=== PATIENT | female | born 1960 | race Caucasian/White ===

== ENCOUNTER → 2020-05-28 11:32 | Outpatient (BNVA) | payer OTHER, SELFPAY | PROVIDERS: Family Provider Family Medicine; PCP Family Medicine; Visit Provider Family Medicine | DX: Z20.828 Contact with and (suspected) exposure to other viral communicable diseases (principal) | CPT/HCPCS: 87635 ==

== ENCOUNTER 2020-06-08 07:46 | Outpatient (CLI) | payer OTHER, SELFPAY ==
--- NOTE | 2020-06-08 08:10 | CT_ITS ---
WS: [id number] CTA scan of the chest with IV contrast. Additional two-dimensional coronal and sagittal reconstructio n and MIP images was performed. 06/08/2020 Clinical Data: ELEVATED D-DIMER Comparison: None. DLP: 741.[address] scans at [facility] use at least one of these dose optimization techniques: automat ed exposure control; mA and/or kV adjustment per patient size (includes targeted exams where dose is matched to clinical indication); or iterative reconstruction. Findings: The central pulmonary arteries and peripheral pulmonary arteries fill normally with no evidence of in traluminal filling defects. No pulmonary embolic disease is noted. No nodules, masses or effusions are seen. The heart size is normal with no pericardial effusion. No p neumonia or pneumothorax is seen. The pulmonary arterial system and thoracic aorta demonstrate no abn ormalities or dilatations. There is no axillary or significant mediastinal adenopathy. The thyroid gl and shows normal enhancement. The trachea bifurcates into the bronchi. The bones of the thorax show m inimal osteoarthritic change of the thoracic vertebral bodies. The upper abdomen shows no abnormalities. The visualized liver, spleen, pancreas, adrenal glands and superior poles of the kidneys are not remarkable. CT/CT angio chest PE protcl [id number] Impression: 1. Negative for pulmonary embolic disease. 2. Negative for acute cardiopulmonary disease.
[2020-06-08] MEDS: iohexol 350 mg/mL 100 mL Btl IV (08:36)
== END 2020-06-08 07:47 | disposition home or self-care (01) ==
LOC: RADWPI 07:49
PROVIDERS: PCP Family Medicine; Visit Provider Family Medicine
DX: R79.89 Other specified abnormal findings of blood chemistry (principal)
CPT/HCPCS: 71275; Q9967

== ENCOUNTER → 2021-07-26 13:40 | Outpatient (BNVA) | payer OTHER, SELFPAY | PROVIDERS: PCP Family Medicine; Visit Provider Nurse Practitioner | DX: Z20.822 Contact with and (suspected) exposure to COVID-19 (principal) | CPT/HCPCS: 87635 ==

== ENCOUNTER → 2021-10-04 12:04 | Outpatient (BNVA) | payer OTHER, SELFPAY | PROVIDERS: PCP Family Medicine; Visit Provider Specialist | DX: M25.562 Pain in left knee (principal); M25.561 Pain in right knee; Z96.642 Presence of left artificial hip joint | CPT/HCPCS: 73560; 73565 ==

== ENCOUNTER 2021-10-04 15:05 | Outpatient (CLI) | payer OTHER, SELFPAY | END 2021-10-04 15:06 | disposition home or self-care (01) | LOC: SPT 15:06 | PROVIDERS: PCP Family Medicine; Visit Provider Specialist | DX: Z46.89 Encounter for fitting and adjustment of other specified devices (principal); M25.561 Pain in right knee; M17.11 Unilateral primary osteoarthritis, right knee; M25.461 Effusion, right knee | CPT/HCPCS: 80503; 87070; 87075; 87205; 89050; 97760; L1812 ==

== ENCOUNTER 2021-11-09 13:07 | Outpatient (CLI) | payer OTHER, SELFPAY ==
--- NOTE | 2021-11-09 13:19 | MR_ITS ---
WS: [id number] MRI RIGHT KNEE HISTORY: knee pain COMPARISON: None available. Anterior cruciate ligament: Intact. Posterior cruciate ligament: Intact. Medial collateral ligament: Increased fluid surrounding the MCL. Partial tear proximally. No full-thi ckness tear. Posterior lateral corner structures: Intact. Medial menisci: Intact. Normal signal, size and shape. Lateral meniscus: Intact. Normal signal, size and shape. Extensor mechanism: Distal quadriceps tendon and patellar tendons are intact. Fluid and soft tissue: Large suprapatellar effusion. Moderate amount of subcutaneous edema surroundin g the knee. No Santiago's cyst. Osseous and articular structures: Patellofemoral compartment: Mild lateral subluxation of the patella. Loss of cartilage over the lemus lar facets. Medial compartment: Mild narrowing medial compartment. Small marginal osteophytes. 6 mm osteochondral lesion medial tibial plateau. Mild thinning and loss of cartilage. There is a small amount of marrow edema in the femoral condyle and tibial plateau. Lateral compartment: Minimal narrowing. Moderate thinning and fissuring of the cartilage. No full-thi ckness defects. Small joint line osteophytes. No fracture. MR/MR knee RT wo con* [id number] IMPRESSION: 1. Large suprapatellar joint effusion. 2. Mild narrowing of the medial compartment with a small amount of marrow stephen a in the femoral condyle and tibial plateau. 3. 6 mm osteochondral lesion medial tibial plateau. 4. Grade 2 MCL sprain. 5. Very mild lateral subluxation of patella with diffuse chondromalacia.
== END 2021-11-09 13:08 | disposition home or self-care (01) ==
LOC: RAD 13:10
PROVIDERS: PCP Family Medicine; Visit Provider Specialist
DX: M17.11 Unilateral primary osteoarthritis, right knee (principal); M25.461 Effusion, right knee; M25.569 Pain in unspecified knee
CPT/HCPCS: 73721

== ENCOUNTER 2021-11-18 12:24 | Outpatient (CLI) | payer OTHER, SELFPAY ==
--- NOTE | 2021-11-18 | XR_ITS ---
WS: [id number] Chest 2 views, 11/18/2021. Clinical Data: SHORTNESS OF BREATH Comparison: PA and lateral chest, 12/08/2016. Findings: No nodules, masses or effusions are seen. The heart is normal. The pulmonary vascularity is not increased. No pneumonia or pneumothorax is seen. XR/XR chest 2V* [id number] Impression: Negative chest.
== END 2021-11-18 12:25 | disposition home or self-care (01) ==
LOC: RADOUTREAD 11-22 12:25
PROVIDERS: PCP Family Medicine; Visit Provider Family Medicine
DX: R06.02 Shortness of breath (principal)
CPT/HCPCS: 71046

== ENCOUNTER 2021-11-23 06:00 | Outpatient (RCR) | payer OTHER, SELFPAY | END 2021-12-22 23:59 | disposition home or self-care (01) | LOC: SPT 06:00 | PROVIDERS: PCP Family Medicine; Referring Provider Specialist; Visit Provider Specialist | DX: M25.561 Pain in right knee (principal); M25.562 Pain in left knee | CPT/HCPCS: 97110; 97161 ==

== ENCOUNTER 2021-12-22 05:55 | Outpatient (CLI) | payer OTHER, SELFPAY ==
--- NOTE | 2021-12-22 | USCV_ITS ---
Susanne Olivas Age: 61 Gender: F : 1960 Exam Date: 12/22/2021 06:15 Ordering Phys: Lane Krause MD Technologist: BARNEY Exam Location: [facility] [place] Indication: ABNORMAL EKG BP: 140 / 80 HR: 62 Rhythm: Sinus Technical Quality: Adequate MEASUREMENTS (Male / Female) Normal Values 2D ECHO LV Diastolic Diameter PLAX 4.6 cm 4.2 - 5.9 / 3.9 - 5.3 cm LV Systolic Diameter PLAX 2.7 cm IVS Diastolic Thickness 1.3 cm 0.6 - 1.0 / 0.6 - 0.9 cm IVS Systolic Thickness 1.8 cm LVPW Diastolic Thickness 1.7 cm 0.6 - 1.0 / 0.6 - 0.9 cm LVPW Systolic Thickness 2.1 cm LVOT Diameter 2.0 cm LV Ejection Fraction 2D Teich 71.3 % LV Ejection Fraction MOD 2C 74.9 % LV Ejection Fraction 2C AL 75.8 % LA Diameter 3.3 cm LA Width 2.3 cm LA Height 4.6 cm RA Width 2.9 cm RA Height 4.5 cm Aorta at Sinotubular Diameter 2.3 cm IVC Diameter 1.6 cm M-MODE Aortic Annulus Diameter 3.6 cm LA Ao Ratio MM 1.0 MV E Point Septal Separation 0.6 cm DOPPLER AV Peak Velocity 167.7 cm/s LVOT Peak Velocity 126.0 cm/s AV Area Cont Eq vti 2.7 cm squared AV Area Cont Eq pk 2.4 cm squared MV Peak Velocity 103.0 cm/s MV Area PHT 3.1 cm squared Mitral E to A Ratio 1.0 MV E' Velocity 51.5 cm/s Mitral E to MV E' Ratio 7.9 Mitral E to LV E' Lateral Ratio 7.5 Mitral E to LV E' Septal Ratio 8.3 TR Peak Velocity 121.3 cm/s TR Peak Gradient 5.9 mmHg TR Mean Velocity 88.3 cm/s TR Mean Gradient 3.3 mmHg TR Velocity Time Integral 31.6 cm TV Peak E Velocity 59.0 cm/s Right Atrial Pressure 3.0 mmHg Pulmonary Artery Systolic Pressu 8.9 mmHg PV Peak Velocity 99.0 cm/s RV Acceleration Time 0.1 s RV Ejection Time 0.3 s RV AcT/ET 0.3 FINDINGS Left Ventricle Normal left ventricular size, systolic function and wall thickness, with no regional wall motion abnormalities. Left ventricular ejection fraction is estimated at 70 %. Normal diastolic function. Right Ventricle Normal right ventricular size and systolic function. Right ventricular systolic pressure 8.9 mmHg. Right Atrium Normal right atrial size. Right atrial pressure estimated at 3 mmHg. Left Atrium Normal left atrial size. Mitral Valve Structurally normal mitral valve. No mitral valve stenosis. No mitral valve regurgitation. Aortic Valve Aortic valve not well visualized. No aortic valve stenosis. No aortic valve regurgitation. Tricuspid Valve Structurally normal tricuspid valve. Trace to mild tricuspid valve regurgitation. Pulmonic Valve Pulmonic valve not well visualized. No significant pulmonary valve regurgitation. Pericardium No pericardial effusion. Aorta Normal-sized aortic root. IVC Normal IVC dimension with >50% respiratory change of the inferior vena cava. CONCLUSIONS 1. Normal left ventricular size, systolic function and wall thickness, with no regional wall motion abnormalities. Left ventricular ejection fraction is estimated at 70 %. Normal diastolic function. 2. Normal right ventricular size and systolic function. 3. Trace to mild tricuspid valve regurgitation. 4. Normal pulmonary artery pressure. 5. No prior similar studies to compare. Allison Molina MD (Electronically Signed) Final Date: 22 December 2021 12:47 S
== END 2021-12-22 05:56 | disposition home or self-care (01) ==
LOC: RAD 05:56
PROVIDERS: PCP Family Medicine; Visit Provider Family Medicine
DX: R94.31 Abnormal electrocardiogram [ECG] [EKG] (principal)
CPT/HCPCS: 93306

== ENCOUNTER 2021-12-23 06:00 | Outpatient (RCR) | payer OTHER, SELFPAY | END 2022-01-22 23:59 | disposition home or self-care (01) | LOC: SPT 06:00 | PROVIDERS: PCP Family Medicine; Referring Provider Specialist; Visit Provider Specialist | DX: M25.561 Pain in right knee (principal) | CPT/HCPCS: 97110 ==

== ENCOUNTER 2022-01-10 13:21 | Observation (INO) | payer OTHER, SELFPAY ==
[2022-01-04 10:09] VITALS: BMI 42.0
[2022-01-04 10:28] LABS: Add Urine Microscopic? NO; Charge for UA Resulting for Rev
[2022-01-04 10:42] LABS: Bilirubin Urine Neg (Negative); Blood Urine Neg (Negative); Glucose Urine UA Norm (Normal); Ketones Urine Negative (Negative); Leukocyte Esterase Urine Negative (Negative); Nitrate Urine Negative (Negative); Protein Urine Neg (Negative); Urine Appearance Clear (CLEAR); Urine Color Yellow (Yellow); Urobilinogen Urine Norm (Negative); pH Urine 5 (5-7)
[2022-01-04 10:54] LABS: Basophils % 0.5 %; Eosinophils # 0.1 10^3/uL (0.0-0.8); Eosinophils % 2.2 %; Lymphocytes # 1.3 10^3/uL (0.8-4.8); Lymphocytes % 21.8 %; Mean Corpuscular Hemoglobin 33.8 pg (28.0-34.0); Mean Corpuscular Volume 99.4 fl (81-99); Mean Platelet Volume 11.1 fL (7.4-10.4); Monocytes # 0.5 10^3/uL (0.2-0.9); Monocytes % 8.2 %; Neutrophils # 3.94 10^3/uL (1.8-7.7); Nucleated Red Blood Cells % 0 %; Platelet Count 189 10^3/cmm (130-400); Red Blood Count 5.03 10^6/uL (4.1-5.3); Red Cell Distribution Width 12.1 % (12.1-15.1); White Blood Count 5.9 10^3/uL (4.0-10.0)
[2022-01-04 10:56] LABS: INR 0.98 (0.8-1.2)
[2022-01-04 11:13] LABS: Alanine Aminotransferase 35 U/L (0-33); Albumin Level 4.3 g/dL (3.5-5.2); Alkaline Phosphatase 108 IU/L (35-105); Anion Gap 17.1 (5-19); Aspartate Amino Transferase 20 U/L (0-32); Blood Urea Nitrogen 16 mg/dL (6-20); Calcium 10.1 mg/dL (8.5-10.5); Carbon Dioxide 29 mmol/L (22-29); Chloride 98 mmol/L (98-107); Globulin 3.6 g/dL (1.3-4.6); Glomerular Filtration Rate 85.6 mL/min (90-130); Glucose 117 mg/dL (65-115); Osmolality Calculated 292 mOsm/kg (285-295); Potassium 4.1 mmol/L (3.5-5.1); Sodium 140 mmol/L (136-145); Total Bilirubin 0.3 mg/dL (0.15-1.2); Total Protein 7.9 g/dL (6.6-8.7)
--- NOTE | 2022-01-04 14:46 | P.ANESASSM_ITS ---
Pre-Anesthetic Assessment Height/Weight: Height 1.63 m Weight 111.13 kg Preop Diagnosis: end stage OA Operation Date: 01/10/22 10:45 Proposed Procedures p Right Total Knee Arthoplasty Bilateral 82053,M17.10(Right) - Melyssa Avery MD Familial anesthetic complications: none Was Beta Moody taken within 24 hours: Yes Was Clonidine taken within 24 hours: N/A Social Tobacco and No alcohol Exam alert, oriented x 3, clear to auscultation bilaterally and regular rate & rhythm Airway Submandibular: within normal limits Cervical ROM: within normal limits Mallampati: Class III Dentition: full Pulmonary Chronic Obstructive Pulmonary Disease and Sleep Apnea CV/HEM Deep Vein Thrombosis (After traumatic injury now has IVC filter in place ) and Hypertension Polycythemia None reported Hepatic None reported GI None reported Metabolic Morbid Obesity [facility] Osteoarthritis/DJD Neuropsych None reported Anesthetic Plan ASA status: 3 Anesthesia: Anesthesia Evaluation and Regional (specify below) (Spinal with adductor canal block ) Other: We discussed risk and benefits of general vs spinal anesthesia including DVT risk, infection, paralysis/catastrophic nerve injury, back bruising/pain, PDPH, conversion to general in case of spinal, PONV, sore throat (sometimes severe), corneal abrasion, positioning and peripheral nerve injuries, life threatening allergic reaction, post operative ICU admission requiring prolonged intubation, stroke, heart attack, , post operative delirium and/or post operative cognitive decline, and rare incidences of recall (under general anesthesia). We discussed risk and benefits of nerve block for post op pain control including management of pain and titration of pain medications as signs/symptoms of nerve block wearing off begin to appear and/or prior bed. We discussed risk of failed nerve block, vascular injury or other vital structure injury, abscess/infection, LAST, and nerve injury. Patient elects spinal with nerve block Risk of > 500 ml blood loss (7ml/kg in children): No Medications/Allergies Home Medications Medication Instructions Recorded Confirmed Last Taken Type escitalopram oxalate 20 mg tablet 20 mg PO DAILY 09/04/19 01/04/22 Unknown History (Lexapro) furosemide 20 mg tablet (Lasix) 20 mg PO BID 09/04/19 01/04/22 Unknown History potassium chloride 10 mEq 10 meq PO DAILY 09/04/19 01/04/22 Unknown History capsule,extended release metoprolol succinate 100 mg 100 mg PO DAILY 12/01/20 01/04/22 Unknown History tablet,extended release 24 hr HINGED KNEE BRACE #1 ea NS 10/04/21 01/04/22 Unknown Rx celecoxib 200 mg capsule (Celebrex) 200 mg PO DAILY #30 cap 10/21/21 01/04/22 Unknown Rx Front wheel walker #1 ea 10/27/21 01/04/22 Unknown Rx hydrochlorothiazide 12.5 mg tablet 12.5 mg PO DAILY 01/02/22 01/04/22 Unknown History montelukast 10 mg tablet 10 mg PO DAILY 01/04/22 01/04/22 Unknown History Allergies Allergy/AdvReac Type Severity Reaction Status Date / Time lisinopril Allergy ADR-Cough Verified 01/02/22 15:00 losartan Allergy ALGY-Rash Verified 01/02/22 15:00 [facility] Anesthesia Medical History Cellulitis H/O deep venous thrombosis Hypertension Shortness of breath Sleep apnea Surgical History H/O total knee replacement Social History Smoking and tobacco status: current every day smoker (1 pack ) Data Anesthesia : 01/04/22 10:26 01/04/22 10:26 Short CBC 01/04/22 Range/Units 10:26 WBC 5.9 (4.0-10.0) 10^3/uL Hgb 17.0 H (11.5-15.3) g/dL Hct 50.0 H (37.0-47.0) % MCV 99.4 H (81-99) fl Plt Count 189 (130-400) 10^3/cmm Neut % (Auto) 67.0 % Neut # (Auto) 3.94 (1.8-7.7) 10^3/uL BMP 01/04/22 10:26 Sodium 140 Potassium 4.1 Chloride 98 Carbon Dioxide 29 BUN 16 Creatinine 0.7 Glucose 117 H Calcium 10.1 Liver Function 01/04/22 Range/Units 10:26 Total Bilirubin 0.3 (0.15-1.2) mg/dL AST 20 (0-32) U/L ALT 35 H (0-33) U/L Alkaline Phosphatase 108 H (35-105) IU/L Albumin 4.3 (3.5-5.2) g/dL Urine 01/04/22 Range/Units 10:01 Urine Color Yellow (Yellow) Urine Appearance Clear (CLEAR) Urine pH 5 (5-7) Ur Specific [place] 1.020 (1.005-1.030) Urine Protein Neg (Negative) Urine Glucose (UA) Norm (Normal) Urine Ketones Negative (Negative) Urine Nitrate Negative (Negative) Urine Bilirubin Neg (Negative) Ur Leukocyte Esterase Negative (Negative) Coags 01/04/22 10:26 PT 13.30 INR 0.98 Cardiac Studies: Echocardiogram 12/22/21
[2022-01-10] VITALS (25 sets, daily range): BP systolic 90–186; BP diastolic 43–103; PULSE 50–78; RESP 14–20; TEMP 36.1–36.9; O2SAT 92–98
--- NOTE | 2022-01-10 06:59 | P.HPUD_ITS ---
Surgery/Procedure H&P Update DATE OF PROCEDURE: January 10, 2022 DATE H&P PERFORMED: 01/02/22 H&P UPDATE INFORMATION: I have reviewed H&P completed within last 30 days, I have examined patient prior to procedure, No changes to prior documentation and [place] is [place] [facility] date indicated PREOP DIAGNOSIS: DJD Right knee PLANNED PROCEDURE: Operation Date: 01/10/22 08:00 Proposed Procedures p Right Total Knee Arthoplasty 86630,M17.10(Right) - Melyssa Avery MD Related Problem List Diagnoses (1) Primary osteoarthritis of right knee: (2) Morbid obesity with BMI of 40.0-44.9, adult:
[2022-01-10] MEDS: sodium chloride 0.9% 1,000 ML 30 ML IV (07:11)
[2022-01-10] MEDS: acetaminophen 1,000 MG/100 ML PIGGYBACK 400 MG IV ×3 (07:11→22:50)
[2022-01-10] MEDS: CELEcoxib 200 mg Capsule 400 MG PO (07:12)
[2022-01-10] MEDS: vancomycin 1,000 MG in sodium chloride 0.9% 250 ML 250 MG IV (07:54)
--- NOTE | 2022-01-10 07:58 | P.ANESUD_ITS ---
Pre-Anesthetic Update Pre-Anesthetic Assessment: Date of Surgery/Procedure: 01/10/22 Preop Jennifer gnosis: DJD Right knee Proposed Procedure: Operation Date: 01/10/22 08:00 Proposed Procedures p Right Total Knee Arthoplasty 67048,M17.10(Right) - Melyssa Avery MD Any changes to Pre-Anesthetic Assessment?: No Last Intake: Intake Last Liquid Date 01/09/22 Last Liquid Time 20:00 Last Solid Date 01/09/22 Last Solid Time 20:00 Vitals: Temperature 98.2 F 01/10/22 06:33 Temperature Source Temporal Artery S can 01/10/22 06:33 Pulse Rate 78 01/10/22 06:33 Pulse Rhythm 01/10/22 06:33 Pulse Strength 3+ Normal 01/10/22 06:33 Respiratory Rate 18 01/10/22 06:33 Blood Pressure 172/96 01/10/22 06:33 Blood Pressure Millie n 121 01/10/22 06:33 Pulse Oximetry 96 01/10/22 06:33 Oxygen Delivery Me thod 01/10/22 06:33 Exam: Pre-Anes Outpt Exam: alert, oriented x 3, clear to auscultation bilaterally and regular rate & rhythm Cardiac Studies: Echocardiogram 12/22/21
[2022-01-10] MEDS: ceFAZolin 2,000 MG in sodium chloride 0.9% (plus) 50 ML 100 MG IV ×2 (08:52→17:36)
--- NOTE | 2022-01-10 09:44 | ANES.PROC ---
Anesthesia Procedures Procedure/Date: 01/10/22 Nerve Block ^: Nerve Block 1: Main Anesthesia: spinal anesthesia block Time Out Performed: Yes Consent: requested by attending/covering physician, from patient, risks and benefits reviewed and patient agrees to proceed Nerve block location: adductor canal (right) Anesthesia monitors applied: pulse oximetry, EKG, BP cuff and oxygen Nerve block position: supine Anesthetic Used: ropivicaine 0.5% Amount of anesthesia used (mL): 20 Ultrasound used to: recognize landmarks Nerve Stimulator Used?: No Interscalene/Femoral BLK: 4 stimuplex 21 g needle used for position and inplane approach Injection: neg aspiration of heme Patient Tolerated Procedure: well Complications: none
--- NOTE | 2022-01-10 09:46 | SUR.OPER ---
Called and notified him of surgical start.
[2022-01-10] MEDS: vancomycin 1,000 MG SDV 1000 MG XX (09:54)
[2022-01-10] MEDS: ceFAZolin 1,000 mg SDV 1000 MG IRRIGATION (09:55)
[2022-01-10] MEDS: sodium chloride 0.9% 250 mL Bag 50 ML XX (09:56)
[2022-01-10] MEDS: tranexamic acid 1,000 mg/10mL SDV 1000 MG IV (10:36)
--- NOTE | 2022-01-10 10:37 | SUR.OPER ---
Called and updated with surgical progress.
--- NOTE | 2022-01-10 11:49 | XRR_ITS ---
PROCEDURE INFORMATION: Exam: XR Right Knee Exam date and time: 01/10/2022 11:53 AM Age: 61 years old Clinical indication: Device placement; Joint replacement hardware; Prior surgery; Surgery date: Post-operative (0-2 days); Surgery type: Status post total knee arthroplasty TECHNIQUE: Imaging protocol: Radiologic exam of the Right knee. Views: 1 or 2 views. COMPARISON: MR knee RT wo con* [id number] 11/09/2021 2:25 PM FINDINGS: Bones/joints: Arthroplasty changes seen in place with postsurgical soft tissue changes. Soft tissues: See Bones/joints finding. XR/XR knee RT 1-2V [id number] IMPRESSION: Arthroplasty changes seen in place with postsurgical soft tissue changes.
--- NOTE | 2022-01-10 11:57 | P.OP_ITS ---
Operative Report Date of procedure: January 10, 2022 Pre-op diagnosis: Primary osteoarthritis right knee Post-op diagnosis: Primary osteoarthritis right knee Procedure done: Right total knee arthroplasty Implants: The [place] total knee system with a size 3 triathlon beaded posterior stabilized femur right, a triathlon titanium tibial component size 2 beaded, a triathlon X3 posterior stabilized tibial bearing insert size 2 X 9 mm and a beaded triathlon titanium asymmetric patella size 29 x 9 mm Pathology: none sent Surgeon: Melyssa Avery Supervisor Waterworks: [facility] operating room technicians Anesthesia: MAC (With spinal and supplemental adductor block, ASA 3) Estimated blood loss (mL): 50 Tourniquet time (min): 71 (300) IV fluids (mL): 700 Urine output (mL): 100 Complications: None Findings: Significant degenerative osteoarthritis consistent with x-rays. Condition: stable Disposition: PACU (Then to floor for postoperative rehabilitation and pain management) Brief History: Susanne Olivas is an established 61 year old female patient here today for evaluation of her right knee. Around the beginning of September of this year, the patient states she was walking in her house when she heard a pop and felt pain in her right knee.? She was seen in my office at that time and treated.? The pain continued, but with time, it is slowly improved.? She has had physical therapy with improvement as well.? Patient has had cortisone injections previously. She had an MRI that was completed on November 09. ?She also understands that she is likely looking at a total knee replacement. Patient has had 6 weeks of protected weight bearing, strengthening, and bracing that has not allowed her to return to her pre injury state.? She has also been unable to return to work.? Patient rates pain 2/10 today. Patient presents to clinic without use of assistive devices. Patient just had her last session with physical therapy last week and was discharged. Patient is weight bearing as tolerated and her walking has improved. Procedure: The patient was brought to the operating theater, and after undergoing adequate spinal anesthesia with MAC and supplemented with adductor canal block, ASA 3, the right lower extremity was prepped with Dura-Prep and draped in usual fashion following placement of a tourniquet high on the leg. The leg was then draped free. Following prepping and draping, the leg was exsanguinated, and the tourniquet was elevated to 250 mmHg for a total tourniquet time of 71 minutes.? Prior to elevation of the tourniquet, but following exposure of the site of surgery, a surgical pause was performed. At the time of the surgical pause, we confirmed the site and side of surgery. Additionally, we confirmed the appropriate and timely administration of preoperative antibiotics, Ancef 2 g, vancomycin 1 g, and Transexemic acid 1 g.? The availability of equipment was confirmed, and the patient's identity was verbalized as well.? An additional 1 g of transexemic acid was administered at the end of the case. Following the surgical pause, an incision was made centering over the patella continuing proximally and distally as necessary to allow access to the knee joint. Dissection continued through skin and soft tissues using a scalpel. Hemostasis was obtained using electrocautery. The skin incision was followed by a median parapatellar arthrotomy. The leg was extended and the patella was everted. Following this, the leg was returned to flexed position.? The distal femur was exposed, and a drill hole was made in this for placement of the distal femoral jig. The distal femoral jig was set at 5? of valgus. The distal femoral cutting block was then placed in appropriate position, and an bibiana wing was used to confirm an appropriate amount of distal femur would be resected.? The distal femoral resection was accomplished with 8 mm of bone being resected distally.? After the distal femoral resection was accomplished, the femur was measured, and it measured a size 3.? Medial lateral dimension also measured a size 3.? A size 3 femoral cutting block was placed in position, and we were then able to accomplish the anterior, posterior and chamfer cuts. This jig was then removed, and the notch guide was placed in position. With the notch guide in appropriate position, the notch was excised including resection of the anterior and posterior cruciate ligaments. This notch was to allow for the posterior stabilized femoral component. At this point, the femur was prepared and attention was directed to the proximal tibia.? The posterior knee retractor was placed along with medial and lateral r etractors. Further resection of the menisci was accomplished as we had better visualization. A complete meniscectomy was performed both medially and laterally with care being taken to protect the popliteus. Retractors were then placed so that the proximal tibia was well visualized. A drill hole was then made in the tibia for placement of the intramedullary guide. This guide was placed so that approximately 2 mm of bone would be resected from the deficient medial tibial plateau. The intramedullary guide was utilized supplemented with an extramedullary guide to assure appropriate alignment for the proximal tibial resection. The proximal tibial jig was then evaluated, pinned in position, and the proximal tibial resection was accomplished without difficulty. The jig was removed, and the proximal tibia was measured. It measured a size 2. We then attempted a trial reduction with a size 2 by 9 mm.? The femoral component was placed in position for the trial reduction, and the knee was placed through range of motion.? With this construct, there was appropriate patellar tracking. Extension was noted to be full as well.? With this we had excellent varus valgus alignment.? The knee was stable to varus valgus stress.? Therefore, these were the chosen components.? There was full extension and flexion without lift off and the rotation of the tibia was marked.? Alignment was checked from the hip to the ankle, and this was noted to be appropriate as well. Attention was then directed to the patella. The patella was measured with a caliper.? As the patella was quite thin, we resected the minimum patella to be able to place a patellar prosthesis..? Measurements of the patella then indicated that a size asymmetric 29 mm x 9 mm was the appropriate patellar size. We then placed the jig to drill for the 3 pegs of the press-fit patella, and these drill holes were made without incident. A trial patella was then placed, and the knee was placed through range of motion. The patella was noted to track nicely without evidence of subluxation.? The femur was prepared for a press-fit femur by drilling 2 holes for the femoral pegs.? All trial components were subsequently removed. The tibial tray was then pinned into position, and we broached the tibia for the stem of the tibial component.? Subsequently, 4 drill holes were made for placement of the press-fit tibia.? This was accomplished without difficulty. Care was taken to assure appropriate rotation of the tibia as well as appropriate position on the proximal tibia. The tibial tray was completely seated on the proximal tibia. Following broaching, the tibial guide was removed, and all surfaces were copiously irrigated. The surfaces were then dried and a bone plug was placed into the distal femur.? Exparel was also subsequently injected. The Tritanium tibia was impacted into position.? The beaded femur was then impacted into position in a cementless fashion. The tibial insert was placed. The patella was pressed into position with a patellar clamp.? The knee was then copiously irrigated with betadine and saline and suctioned dry. Attention was then directed to closure. Closure was accomplished with 0 Vicryl in the fascial tissues.? Following this, a 2-0 Monocryl was used in the subcutaneous tissues, and the skin was closed with skin nila.? Care was taken to assure an excellent subcutaneous as well as skin closure.? A sterile dressing was then placed consisting of Dermabond Prineo, Telfa, OpSite, sterile soft roll including over the foot, and an [place] wrap. The patient was returned the Recovery Room in a satisfactory condition. X-rays were obtained and reviewed there.? The patient will be discharged to the floor for postoperative rehabilitation and pain management. Related Problem List Diagnoses (1) Primary osteoarthritis of right knee: (2) Morbid obesity with BMI of 40.0-44.9, adult:
[2022-01-10] MEDS: hyDRALAzine 20 mg/mL INJ 1 mL 10 MG IVP (12:01)
--- NOTE | 2022-01-10 13:01 | SUR.EXTENDED ---
patient is awake and alert, able to wiggle toes. patient eating lunch. family present in room.
[2022-01-10] MEDS: oxyCODONE 5 mg IR Tab/Cap PO ×2 (13:56→17:03)
--- NOTE | 2022-01-10 14:24 | SUR.EXTENDED ---
patient transported to [facility] room 254-2. report called to daniel MAN. patient awake and alert x4, dressing in place on right knee. patient on room air with sat of 98%. patient able to move legs, wiggle toes, has sensation in both feet. burgos in place draining urine. rodent exterminator in room on arrival. patients present on transport to room 254-2.
[2022-01-10] MEDS: metoclopramide 5 mg/mL SDV 2 mL 10 MG IV (15:11)
--- NOTE | 2022-01-10 16:19 | ANE.PACU2 ---
Inpatient post-anesthesia follow up: Airway intact: Yes Vital signs: Temperature 96.9 F Pulse Rate 71 Respiratory Rate 16 Blood Pressure 90/60 Pulse Oximetry 95 Oxygen Delivery Me thod [Rate & Room Air Delivery Changed T o] Oxygen Delivery Me thod Room Air Oxygen Flow Rate Fraction of Inspir ed Oxygen Hydration adequate: Yes Nausea and vomiting: No Pain level: 2 Mental status: Baseline
[2022-01-10] MEDS: sennosides-docusate Tablet 2 TAB PO (17:36)
[2022-01-10] MEDS: calcium carbonate 500 mg Chew Tablet 1000 MG PO (17:36)
[2022-01-10] MEDS: iron polysaccharide complex 150 mg Capsule PO (17:36)
[2022-01-10] MEDS: chlorhexidine gluconate 0.12% Btl 473 mL 30 ML MUCOUS MEM ×2 (17:37→20:52)
[2022-01-10] MEDS: mupirocin oint 22 gm 1 APPLIC NASAL (18:17)
[2022-01-10] MEDS: oxyCODONE 5 mg IR Tab/Cap 10 MG PO ×2 (18:18→21:20)
--- NOTE | 2022-01-10 21:04 | PC.NURSE ---
Patient asked nurse can you call Dr. Avery and see if she can give me something to help me sleep? Dr. Avery notified. See order/mar.
[2022-01-10] MEDS: gabapentin 300 mg Capsule PO (21:16)
[2022-01-11] VITALS (10 sets, daily range): BP systolic 129–156; BP diastolic 69–84; PULSE 66–74; RESP 12–18; TEMP 36.7–36.9; O2SAT 93–97
[2022-01-11] MEDS: ceFAZolin 2,000 MG in sodium chloride 0.9% (plus) 50 ML 100 MG IV ×2 (01:02→08:35)
[2022-01-11] MEDS: oxyCODONE 5 mg IR Tab/Cap 10 MG PO ×4 (01:02→13:33)
[2022-01-11 02:35] LABS: Basophils % 0.3 %; Eosinophils # 0.1 10^3/uL (0.0-0.8); Hematocrit 42.8 % (37.0-47.0); Hemoglobin 14.5 g/dL (11.5-15.3); Lymphocytes # 1.4 10^3/uL (0.8-4.8); Lymphocytes % 15.5 %; Mean Corpuscular HGB Conc 33.9 g/dL (30.0-36.0); Mean Corpuscular Hemoglobin 33.8 pg (28.0-34.0); Mean Corpuscular Volume 99.8 fl (81-99); Mean Platelet Volume 11.3 fL (7.4-10.4); Monocytes # 0.7 10^3/uL (0.2-0.9); Monocytes % 7.6 %; Neutrophils # 6.61 10^3/uL (1.8-7.7); Neutrophils % 75.3 %; Nucleated Red Blood Cells % 0 %; Platelet Count 173 10^3/cmm (130-400); Red Blood Count 4.29 10^6/uL (4.1-5.3); Red Cell Distribution Width 12.2 % (12.1-15.1); White Blood Count 8.8 10^3/uL (4.0-10.0)
[2022-01-11 02:53] LABS: Anion Gap 10.9 (5-19); Blood Urea Nitrogen 16 mg/dL (6-20); Calcium 9.3 mg/dL (8.5-10.5); Carbon Dioxide 28 mmol/L (22-29); Chloride 99 mmol/L (98-107); Glomerular Filtration Rate 102.3 mL/min (90-130); Glucose 131 mg/dL (65-115); Osmolality Calculated 281 mOsm/kg (285-295); Potassium 3.9 mmol/L (3.5-5.1); Sodium 134 mmol/L (136-145)
[2022-01-11] MEDS: acetaminophen 1,000 MG/100 ML PIGGYBACK 400 MG IV (05:06)
[2022-01-11] MEDS: hydroCHLOROthiazide 25 mg Tablet 12.5 MG PO (08:25)
[2022-01-11] MEDS: calcium carbonate 500 mg Chew Tablet 1000 MG PO (08:25)
[2022-01-11] MEDS: montelukast sodium 10 mg Tablet PO (08:25)
[2022-01-11] MEDS: cholecalciferol (vitamin D3) 1,000 unit Tablet 1000 UNIT PO (08:25)
[2022-01-11] MEDS: aspirin 325 mg EC Tablet PO (08:25)
[2022-01-11] MEDS: CELEcoxib 200 mg Capsule PO (08:26)
[2022-01-11] MEDS: FUROsemide 20 mg Tablet PO (08:26)
[2022-01-11] MEDS: escitalopram 10 mg Tablet 20 MG PO (08:26)
[2022-01-11] MEDS: multivitamin therapeutic Tablet 1 TAB PO (08:26)
[2022-01-11] MEDS: potassium chloride ER 10 mEq Tablet PO (08:26)
[2022-01-11] MEDS: sennosides-docusate Tablet 2 TAB PO (08:26)
[2022-01-11] MEDS: metoprolol succinate ER (24 HR) 100 mg Tablet PO (08:26)
[2022-01-11] MEDS: iron polysaccharide complex 150 mg Capsule PO (08:36)
[2022-01-11] MEDS: vancomycin 1,000 MG in sodium chloride 0.9% 250 ML 250 MG IV (09:21)
--- NOTE | 2022-01-11 09:50 | PC.NURSE ---
This nurse assumed care of patient this AM, patient is resting in bed, CPM at bedside, this nurse will apply to patient after PT works with her. PT is going to sit patient up in chair for breakfast. Patient is AAOx4, with mild c/o of pain and states that pain medication per MAR controls her pain. No needs at this time. After performing morning assessment patient has elevated BP and medication will be given for that. Remaining VSS, room found to be clean and clutter free with call light in reach. Will continue to monitor.
[2022-01-11] MEDS: acetaminophen 500 mg Tablet 1000 MG PO (12:33)
--- NOTE | 2022-01-11 13:35 | PM.DCS ---
Discharge Providers Date of Admission: 01/10/22 13:21 Date of Discharge: January 11, 2022 Attending Provider at Admission: Melyssa Avery MD Attending Provider at Discharge: Melyssa Avery MD Primary Care Provider: Lane Krause MD Diagnoses at Discharge Discharge Diagnosis (1) Status post total right knee replacement not using cement: Status: Acute Permanent problem details: Date of procedure: January 10, 2022 Diagnosis: Primary osteoarthritis right knee Procedure done: Right total knee arthroplasty Implants: The Daisy total knee system with a size 3 triathlon beaded posterior stabilized femur right, a triathlon titanium tibial component size 2 beaded, a triathlon X3 posterior stabilized tibial bearing insert size 2 X 9 mm and a beaded triathlon titanium asymmetric patella size 29 x 9 mm (2) Primary osteoarthritis of right knee: Status: Acute (3) Morbid obesity with BMI of 40.0-44.9, adult: Status: Acute Reason for Visit Reason for Visit: Brief History: Susanne Olivas is an established 61 year old female patient here today for evaluation of her right knee. Around the beginning of September of this year, the patient states she was walking in her house when she heard a pop and felt pain in her right knee.? She was seen in my office at that time and treated.? The pain continued, but with time, it is slowly improved.? She has had physical therapy with improvement as well.? Patient has had cortisone injections previously. She had an MRI that was completed on November 09. ?She also understood that she was likely looking at a total knee replacement. Patient has had 6 weeks of protected weight bearing, strengthening, and bracing that has not allowed her to return to her pre injury state.? She has also been unable to return to work.? Patient rates pain 2/10 today. Patient presents to clinic without use of assistive devices. When the patient was seen preoperatively in the office, she was still having significant limitations in activities of daily living that she felt she would not be able to return to work without pursuing total knee arthroplasty. Hospital Course Hospital Course This 61-year-old woman presented to my office most recently December 29, 2021. At that time, she had had the above history, and she felt that she would not be able to return to work without total knee arthroplasty. She was interested in pursuing this patient as possible. The knee replacement and associated risks and complications were discussed in detail with the patient. Questions were answered and consents were signed. The patient was taken to the operating room yesterday for same-day surgery in the form of right total knee arthroplasty. This was well-tolerated. She was admitted to the hospital overnight and had physical therapy today. The patient did well with physical therapy and is now scheduled for discharged home. Additionally, she has an appointment, medical discussion, we elected to have her proceed with outpatient physical therapy. She is in agreement with this plan will return to see me as scheduled. Physical Exam Const: COMMON NORMALS: no acute distress, patient oriented x3 and alert GENERAL APPEARANCE: cooperative and comfortable ORIENTATION/CONSCIOUSNESS: Yes awake HENMT: COMMON NORMALS: normocephalic and atraumatic HEAD & SCALP: normocephalic and atraumatic Eye: GENERAL EYE: appearance normal, both eyes and all related structures Chest: COMMONS NORMALS: normal inspection of the chest Resp: COMMON NORMALS: normal respiratory effort EFFORT & INSPECTION: Yes able to speak in complete sentences and Yes symmetric chest movement Extremity: RIGHT LOWER EXTREMITY: Yes knee joint (Dressing is dry and intact) Right knee: Yes inspection (Minimal to no swelling or ecchymosis.), Yes palpation (Minimal tenderness.), Yes ROM (Lacks about 5 degrees of active extension.) and Yes neurovascular exam (Intact distally with no evidence of DVT) Neuro: COMMON NORMALS: patient oriented x3 SENSORIUM/ORIENTATION: Yes alert Psych: COMMON NORMALS: mental status grossly normal APPEARANCE: Yes grossly normal ATTITUDE: Yes calm and Yes engaged ATTENTION/CONCENTRATION: Yes attention grossly intact Skin: COMMON NORMALS: no rashes or lesions noted GENERAL SKIN EXAM: no rashes or lesions noted Urinary Catheter Management: Jackson: Cath Placed During This Visit: yes, but has since been removed by the nurse Reason for Continuing Indwelling Catheter: Decision to DC Catheter Urinary Catheter Date of Insertion: 01/10/22 Urinary Catheter Time of Insertion: 09:00 Date Urinary Catheter Removed: 01/11/22 Time Urinary Catheter Discontinued: 05:15 Discharge Data Studies Completed and Pending Completed Studies During Hospitalization Category Date Time Status XR knee RT 1-2V 72102 Urgent Exams 01/10/22 11:49 Completed Radiology Impressions Knee X-Ray 01/10/22 11:49 IMPRESSION: Arthroplasty changes seen in place with postsurgical soft tissue changes. Laboratory Results WBC 8.8 10^3/uL (4.0-10.0) 01/11/22 02:02 RBC 4.29 10^6/uL (4.1-5.3) 01/11/22 02:02 Hgb 14.5 g/dL (11.5-15.3) 01/11/22 02:02 Hct 42.8 % (37.0-47.0) 01/11/22 02:02 MCV 99.8 fl (81-99) H 01/11/22 02:02 MCH 33.8 pg (28.0-34.0) 01/11/22 02:02 MCHC 33.9 g/dL (30.0-36.0) 01/11/22 02:02 RDW 12.2 % (12.1-15.1) 01/11/22 02:02 Plt Count 173 10^3/cmm (130-400) 01/11/22 02:02 MPV 11.3 fL (7.4-10.4) H 01/11/22 02:02 Neut % (Auto) 75.3 % 01/11/22 02:02 Lymph % (Auto) 15.5 % 01/11/22 02:02 [place] % (Auto) 7.6 % 01/11/22 02:02 Eos % (Auto) 1.0 % 01/11/22 02:02 Baso % (Auto) 0.3 % 01/11/22 02:02 Neut # (Auto) 6.61 10^3/uL (1.8-7.7) 01/11/22 02:02 Lymph # (Auto) 1.4 10^3/uL (0.8-4.8) 01/11/22 02:02 [place] # (Auto) 0.7 10^3/uL (0.2-0.9) 01/11/22 02:02 Eos # (Auto) 0.1 10^3/uL (0.0-0.8) 01/11/22 02:02 Baso # (Auto) 0.0 10^3/uL (0.0-0.1) 01/11/22 02:02 Nucleated RBC % (auto) 0 % 01/11/22 02:02 Nucleated RBCs # 0.0 /100WBC 01/11/22 02:02 PT 13.30 SECONDS (12.1-14.9) 01/04/22 10:26 INR 0.98 (0.8-1.2) 01/04/22 10:26 Sodium 134 mmol/L (136-145) L 01/11/22 02:02 Potassium 3.9 mmol/L (3.5-5.1) 01/11/22 02:02 Chloride 99 mmol/L (98-107) 01/11/22 02:02 Carbon Dioxide 28 mmol/L (22-29) 01/11/22 02:02 Anion Gap 10.9 (5-19) 01/11/22 02:02 BUN 16 mg/dL (6-20) 01/11/22 02:02 Creatinine 0.6 mg/dL (0.5-0.9) 01/11/22 02:02 GFR Calculation 102.3 mL/min (90-130) 01/11/22 02:02 Glucose 131 mg/dL (65-115) H 01/11/22 02:02 Calculated Osmolality 281 mOsm/kg (285-295) L 01/11/22 02:02 Calcium 9.3 mg/dL (8.5-10.5) 01/11/22 02:02 Total Bilirubin 0.3 mg/dL (0.15-1.2) 01/04/22 10:26 AST 20 U/L (0-32) 01/04/22 10:26 ALT 35 U/L (0-33) H 01/04/22 10:26 Alkaline Phosphatase 108 IU/L (35-105) H 01/04/22 10:26 Total Protein 7.9 g/dL (6.6-8.7) 01/04/22 10:26 Albumin 4.3 g/dL (3.5-5.2) 01/04/22 10:26 Globulin 3.6 g/dL (1.3-4.6) 01/04/22 10:26 Urine Color Yellow (Yellow) 01/04/22 10:01 Urine Appearance Clear (CLEAR) 01/04/22 10:01 Urine pH 5 (5-7) 01/04/22 10:01 Ur Specific [place] 1.020 (1.005-1.030) 01/04/22 10:01 Urine Protein Neg (Negative) 01/04/22 10:01 Urine Glucose (UA) Norm (Normal) 01/04/22 10:01 Urine Ketones Negative (Negative) 01/04/22 10:01 Urine Blood Neg (Negative) 01/04/22 10:01 Urine Nitrate Negative (Negative) 01/04/22 10:01 Urine Bilirubin Neg (Negative) 01/04/22 10:01 Urine Urobilinogen Norm mg/dL (Negative) 01/04/22 10:01 Ur Leukocyte Esterase Negative (Negative) 01/04/22 10:01 Vitals Last Vital Signs Temp 98.1 F 01/11/22 11:52 Pulse 67 01/11/22 11:52 Resp 18 01/11/22 13:33 BP 150/69 01/11/22 11:52 Pulse Ox 95 01/11/22 11:52 Discharge Plan Discharge Patient Disposition: Home Condition: Stable Prescriptions: New acetaminophen 500 mg Tablet 1,000 mg PO Q8H 15 Days Qty: 90 0RF aspirin 325 mg Tablet,Delayed Release (Dr/Ec) 325 mg PO DAILY 30 Days 0RF oxycodone 5 mg tablet 10 mg PO Q4H PRN (Reason: pain) 7 Days Qty: 60 0RF Continued furosemide [Lasix] 20 mg tablet 20 mg PO BID 0RF potassium chloride 10 mEq capsule, extended release 10 meq PO DAILY 0RF escitalopram oxalate [Lexapro] 20 mg tablet 20 mg PO DAILY 0RF metoprolol succinate 100 mg tablet extended release 24 hr 100 mg PO DAILY 0RF hydrochlorothiazide 12.5 mg tablet 12.5 mg PO DAILY 0RF (DME) HINGED KNEE BRACE See Rx Instructions .Route .MEDSUPPLY Qty: 1 0RF Rx Instructions: As directed celecoxib [Celebrex] 200 mg capsule 200 mg PO DAILY Qty: 30 0RF Rx Instructions: please take 1 tablet once daily (DME) Front wheel walker See Rx Instructions .Route .MEDSUPPLY Qty: 1 0RF Rx Instructions: Use as directed montelukast 10 mg tablet 10 mg PO DAILY 0RF Discharge Orders: Discharge Order (Routine); Ordered 01/11/22 Ordered By: Melyssa Avery Other Ambulatory Orders: Physical Therapy Eval and Treat Outpatient (Order) Timeframe: 1 Day Facility: [facility] - Location: Physical Therapy Ordered By: Melyssa Avery Referrals: Melyssa Avery MD [Physician] - 01/23/22 8:30 am Discharge Diet: Advance as tolerated and Usual diet Discharge Activity: Increase activity as tolerated, Limit activity as instructed, Use walker/crutches as instructed and As per PT/OT instructions Patient Instructions: Oxycodone/Acetaminophen (By mouth), Aspirin (By mouth), Opioid Safety Activity Restrictions/Additional Instructions: Ice and elevation right lower extremity. Range of motion, gait training, and strengthening per physical therapy. Outpatient physical therapy. Discharge Attestations Time Spent in Discharge Care*: greater than 30 min Specific Discharge Activities: educating patient, documenting/other paperwork and evaluating patient/reviewing data Quality Metrics Clinical Quality Measures [ No reported AMI, CVA or VTE this stay] Coding Level of Care Code Acute g [facility] note Diagnoses Primary osteoarthritis of right knee M17.11 Morbid obesity with BMI of 40.0-44.9, adult E66.01; Z68.41 Status post total right knee replacement not using cement Z96.651
== END 2022-01-11 13:53 | disposition home or self-care (01) ==
LOC: MEDSURG 13:22
PROVIDERS: Anesthesiology; Admitting Provider Specialist; PCP Family Medicine; Visit Provider Specialist
PROC: 0SRC0JZ Replacement of Right Knee Joint with Synthetic Substitute, Open Approach (ICD-10-PCS; CPT 27447; principal; 2022-01-10 07:50)
DX: M17.11 Unilateral primary osteoarthritis, right knee (principal); E66.01 Morbid (severe) obesity due to excess calories; Z68.41 Body mass index [BMI] 40.0-44.9, adult; Z86.718 Personal history of other venous thrombosis and embolism; G47.30 Sleep apnea, unspecified; F17.210 Nicotine dependence, cigarettes, uncomplicated
CPT/HCPCS: 27447; 36415; 51702; 73560; 80048; 80053; 81003; 85025; 85610; 97110; 97116; 97161; 97165; C1776; C9290; G0378; J0360; J0690; J2250; J2704; J2765; J2795; J3010; J3370; J3490; J7030; J7050

== ENCOUNTER 2022-01-12 06:00 | Outpatient (RCR) | payer OTHER, SELFPAY | END 2022-01-22 23:59 | disposition home or self-care (01) | LOC: SPT 06:00 | PROVIDERS: PCP Family Medicine; Referring Provider Specialist; Visit Provider Specialist | DX: Z47.1 Aftercare following joint replacement surgery (principal); Z96.651 Presence of right artificial knee joint | CPT/HCPCS: 97110; 97161 ==

== ENCOUNTER 2022-01-23 06:00 | Outpatient (RCR) | payer OTHER, SELFPAY | END 2022-02-22 23:59 | disposition home or self-care (01) | LOC: SPT 06:00 | PROVIDERS: PCP Family Medicine; Visit Provider Specialist | DX: Z96.651 Presence of right artificial knee joint (principal) | CPT/HCPCS: 97110 ==

== ENCOUNTER 2022-01-23 12:39 | Outpatient (CLI) | payer OTHER, SELFPAY ==
--- NOTE | 2022-01-23 14:07 | XRR_ITS ---
PROCEDURE INFORMATION: Exam: XR Bilateral Knees, Standing AP Exam date and time: 01/23/2022 2:17 PM Age: 61 years old Clinical indication: Device placement; Joint replacement hardware; Prior surgery; Surgery date: Post-operative (0-2 days); Additional info: Status post total right knee replacement, include sunrise TECHNIQUE: Imaging protocol: Radiologic exam of the bilateral knees. Views: Standing AP. COMPARISON: CR XR knee RT 1-2V [id number] 01/10/2022 11:53 AM FINDINGS: Bones/joints: Metallic knee replacement is seen in good position showing no evidence of loosening. Soft tissues: Soft tissue effusion and metallic nila are seen in the anterior knee XR/XR knees AP WB w RT lmt ORTH IMPRESSION: 1. Metallic knee replacement in good position. 2. Postoperative soft tissue changes anterior knee 3. Otherwise No acute findings.
== END 2022-01-23 12:40 | disposition home or self-care (01) ==
LOC: RAD 12:41
PROVIDERS: PCP Family Medicine; Visit Provider Nurse Practitioner Family
DX: Z96.651 Presence of right artificial knee joint (principal)
CPT/HCPCS: 73560; 73565

== ENCOUNTER → 2022-02-16 13:05 | Outpatient (BNVA) | payer OTHER, SELFPAY | PROVIDERS: PCP Family Medicine; Visit Provider Nurse Practitioner Family | DX: R42 Dizziness and giddiness (principal); Z96.651 Presence of right artificial knee joint | CPT/HCPCS: 73560; 73565 ==

== ENCOUNTER 2022-02-23 06:00 | Outpatient (RCR) | payer OTHER, SELFPAY | END 2022-03-24 23:59 | disposition home or self-care (01) | LOC: SPT 06:00 | PROVIDERS: PCP Family Medicine; Visit Provider Specialist | DX: Z96.651 Presence of right artificial knee joint (principal) | CPT/HCPCS: 97110 ==

== ENCOUNTER 2023-03-30 11:29 | Outpatient (CLI) | payer OTHER, SELFPAY ==
--- NOTE | 2023-03-30 11:33 | MM_ITS ---
WS: [id number] BILATERAL 3D TOMOSYNTHESIS DIGITAL SCREENING MAMMOGRAPHY WITH CAD CLINICAL INFORMATION: SCREENING HISTORY: Screening mammogram. No current complaints. COMPARISON: 2016 TECHNIQUE: Bilateral CC and MLO views. FINDINGS: Scattered fibroglandular densities bilaterally. No suspicious focal mass, asymmetry, calcifications, or architectural distortion. No evidence of malignancy. A few incidental punctate calcifications. IMPRESSION: MM/[place] [id number] BI-RADS: 2-Benign FOLLOW UP: 1 Year Follow-up Recommend return to annual screening mammography.
== END 2023-03-30 11:30 | disposition home or self-care (01) ==
PROVIDERS: PCP Family Medicine; Visit Provider Family Medicine
DX: Z12.31 Encounter for screening mammogram for malignant neoplasm of breast (principal)
CPT/HCPCS: 77063; 77067

== ENCOUNTER → 2023-10-10 13:40 | Outpatient (BNVA) | payer OTHER, SELFPAY | PROVIDERS: PCP Family Medicine; Visit Provider Obstetrics & Gynecology | DX: Z01.419 Encounter for gynecological examination (general) (routine) without abnormal findings (principal) | CPT/HCPCS: 87624 ==

== ENCOUNTER → 2023-10-22 08:31 | Outpatient (BNVA) | payer OTHER, SELFPAY | PROVIDERS: PCP Family Medicine; Visit Provider Obstetrics & Gynecology | DX: N95.0 Postmenopausal bleeding (principal); R93.89 Abnormal findings on diagnostic imaging of other specified body structures | CPT/HCPCS: 76830 ==

== ENCOUNTER 2023-11-01 08:00 | Day surgery (SDC) | payer OTHER, SELFPAY ==
[2023-11-01] VITALS (12 sets, daily range): BP systolic 126–178; BP diastolic 72–105; PULSE 62–85; RESP 16–30; TEMP 36.5–36.7; O2SAT 91–96; BMI 42.9
--- NOTE | 2023-11-01 05:06 | W.PM.OPSFHP ---
Same Day Surgery H&P Indication for Procedure/HPI DATE OF PROCEDURE: November 01, 2023 CHIEF COMPLAINT/INDICATIONFOR SURGICAL PROCEDURE: abnormal uterine bleeding PREOP DIAGNOSIS: abnormal uterine bleeding PLANNED PROCEDURE: Operation Date: 11/01/23 09:35 Proposed Procedures p Hysteroscopy Hysteroscopy w/ Endometrial Sampling 50309, N93.9(Not Applicable) - Shelton Davila MD s Possible Poylpectomy(Not Applicable) - Shelton Davila MD 63 y.o. h/o endometrial ablation LNMP more than 10 years ago No bleeding or spotting until early September 2023 Medications/Allergies* Home Medications Medication Instructions Recorded Confirmed Type escitalopram oxalate 20 mg tablet 20 mg PO DAILY 09/04/19 10/31/23 History (Lexapro) furosemide 20 mg tablet (Lasix) 20 mg PO BID 09/04/19 10/31/23 History potassium chloride 10 mEq 10 meq PO DAILY 09/04/19 10/31/23 History capsule,extended release metoprolol succinate 100 mg 100 mg PO DAILY 12/01/20 10/31/23 History tablet,extended release 24 hr hydrochlorothiazide 12.5 mg tablet 12.5 mg PO DAILY 01/02/22 10/31/23 History montelukast 10 mg tablet 10 mg PO DAILY 01/04/22 10/31/23 History Allergies/Adverse Reactions Allergy/AdvReac Type Severity Reaction Status Date / Time lisinopril Allergy ADR-Cough Verified 10/10/23 13:10 losartan Allergy ALGY-Rash Verified 10/10/23 13:10 Pertinent History/Comorbid Conditions* Medical History (Updated 10/11/23 @ 20:40 by Shelton Davila MD) Dental abscess Shortness of breath Sleep apnea Hypertension H/O deep venous thrombosis Cellulitis Surgical History (Updated 01/11/22 @ 13:37 by Melyssa Avery MD) H/O total knee replacement Family History (Updated 10/10/23 @ 13:11 by Joy Landry LPN) Colon cancer Father Hypertension Mother Uterine cancer Mother Denies family history of Ovarian cancer Prostate cancer Diabetes Heart disease Hypercholesteremia Breast cancer Thyroid disease Stroke Pertinent Exam Findings alert, oriented x 3, clear to auscultation bilaterally and regular rate & rhythm Pertinent Data Pap 10-10-23 NILM, negative HPV Pelvic sono 4-29-24 uterus normal, 1.2 cm fibroid Endometrium 8 mm Cervix with 2 cm polyp Normal ovaries Recommendations Surgery/Procedure today Coding Level of Care Code Acute Code for Chg Fwd Time Spent (min) 20
[2023-11-01] MEDS: sodium chloride 0.9% 1,000 ML 30 ML IV (08:43)
--- NOTE | 2023-11-01 08:48 | W.PM.OPSUD ---
Surgery/Procedure H&P Update DATE OF PROCEDURE: November 01, 2023 DATE H&P PERFORMED: 11/01/23 H&P UPDATE INFORMATION: I have reviewed H&P completed within last 30 days, I have examined patient prior to procedure and No changes to prior documentation PREOP DIAGNOSIS: abnormal uterine bleeding PLANNED PROCEDURE: Operation Date: 11/01/23 09:35 Proposed Procedures p Hysteroscopy Hysteroscopy w/ Endometrial Sampling 15169, N93.9(Not Applicable) - Shelton Davila MD s Possible Poylpectomy(Not Applicable) - Shelton Davial MD
--- NOTE | 2023-11-01 09:00 | ANES.PREANE2 ---
Pre-Anesthetic Assessment Height/Weight: Height 1.63 m Weight 113.398 kg Temp Pulse Resp BP Pulse Ox O2 Del Method 97.8 F 77 19 H 178/102 96 Room Air, Nasal Cannula 11/01/23 08:14 11/01/23 08:14 11/01/23 08:14 11/01/23 08:14 11/01/23 08:14 11/01/23 08:15 Preop Diagnosis: abnormal uterine bleeding Operation Date: 11/01/23 09:35 Proposed Procedures p Hysteroscopy Hysteroscopy w/ Endometrial Sampling 30288, N93.9(Not Applicable) - Shelton Davila MD s Possible Poylpectomy(Not Applicable) - Shelton Davila MD Familial anesthetic complications: None Was Beta Moody taken within 24 hours: N/A Was Clonidine taken within 24 hours: N/A Last intake: Intake Last Liquid Date 10/31/23 Last Liquid Time 21:00 Last Solid Date 10/31/23 Last Solid Time 21:00 Social Tobacco and No alcohol Exam alert, oriented x 3, clear to auscultation bilaterally and regular rate & rhythm Airway Mallampati: Class III Dentition: full Pulmonary Sleep Apnea CV/HEM Hypertension Anesthetic Plan ASA status: 2 Anesthesia: General Risk of > 500 ml blood loss (7ml/kg in children): No Medications/Allergies Home Medications Medication Instructions Recorded Confirmed Last Taken Type escitalopram oxalate 20 mg tablet 20 mg PO DAILY 09/04/19 10/31/23 10/31/23 History (Lexapro) furosemide 20 mg tablet (Lasix) 20 mg PO BID 09/04/19 10/31/23 10/31/23 History potassium chloride 10 mEq 10 meq PO DAILY 09/04/19 10/31/23 10/31/23 History capsule,extended release metoprolol succinate 100 mg 100 mg PO DAILY 12/01/20 11/01/23 11/01/23 History tablet,extended release 24 hr hydrochlorothiazide 12.5 mg tablet 12.5 mg PO DAILY 01/02/22 11/01/23 11/01/23 History montelukast 10 mg tablet 10 mg PO DAILY 01/04/22 11/01/23 11/01/23 History Allergies Allergy/AdvReac Type Severity Reaction Status Date / Time lisinopril Allergy ADR-Cough Verified 10/10/23 13:10 losartan Allergy ALGY-Rash Verified 10/10/23 13:10 Current Medications Generic Name Dose Route Start Last Admin Trade Name Freq PRN Reason Stop Dose Admin Sodium Chloride 1,000 mls @ 30 mls/hr 11/01/23 08:15 11/01/23 08:43 Sodium Chloride 0.9% IV 11/02/23 08:14 30 mls/hr .Q24H MALENA Administration PFSH Anesthesia Medical History Dental abscess Shortness of breath Sleep apnea Hypertension H/O deep venous thrombosis Cellulitis Surgical History H/O total knee replacement Family History Father Colon cancer Mother Hypertension Uterine cancer Denies family history of Ovarian cancer Prostate cancer Diabetes Heart disease Hypercholesteremia Breast cancer Thyroid disease Stroke Data Anesthesia Cardiac Studies: Echocardiogram 12/22/21
[2023-11-01 09:23] LABS: Basophils % 0.7 %; Eosinophils # 0.2 10^3/uL (0.0-0.8); Eosinophils % 3.3 %; Hematocrit 49.4 % (36-47); Lymphocytes # 1.3 10^3/uL (0.8-4.8); Lymphocytes % 22.1 %; Mean Corpuscular HGB Conc 34.6 g/dL (30-55); Mean Corpuscular Hemoglobin 34.8 pg (27-33); Mean Corpuscular Volume 100.4 fl (85-98); Mean Platelet Volume 10.6 fL (7.4-10.4); Monocytes # 0.3 10^3/uL (0.2-0.9); Monocytes % 5.9 %; Neutrophils # 3.94 10^3/uL (1.8-7.7); Neutrophils % 67.8 %; Nucleated Red Blood Cells % 0 %; Platelet Count 180 10^3/cmm (157-399); Red Blood Count 4.92 10^6/uL (3.85-5.65); Red Cell Distribution Width 13.2 % (12.1-15.1)
[2023-11-01 09:45] LABS: Alanine Aminotransferase 73 U/L (0-33); Albumin Level 4.1 g/dL (3.5-5.2); Alkaline Phosphatase 100 U/L (35-105); Anion Gap 14.9 (5-19); Aspartate Amino Transferase 58 U/L (0-32); Blood Urea Nitrogen 10 mg/dL (8-23); Calcium 9.3 mg/dL (8.5-10.5); Carbon Dioxide 27 mmol/L (22-29); Chloride 97 mmol/L (98-107); Creatinine Clr Calc Pharmacy 104.1614; Globulin 3.3 g/dL (1.3-4.6); Glomerular Filtration Rate 85.1 mL/min (90-130); Glucose 126 mg/dL (65-115); Osmolality Calculated 281 mOsm/kg (285-295); Potassium 3.9 mmol/L (3.5-5.1); Sodium 135 mmol/L (136-145); Total Bilirubin 0.6 mg/dL (0.15-1.2); Total Protein 7.4 g/dL (6.6-8.7)
--- NOTE | 2023-11-01 10:05 | P.OP_ITS ---
Operative Report Date of procedure: November 01, 2023 Pre-op diagnosis: abnormal uterine bleeding Post-op diagnosis: same Post-op findings: moderate endometrial tissue + two endometrial polyps Procedure done: Hysteroscopy Endometrial sampling and polypectomy with Myosure Implants: none Specimens removed/disposition: endometrial tissue Surgeon: Shelton Davila MD Anesthesia: MAC Estimated blood loss (mL): 0 Complications: none Condition: stable Disposition: PACU Brief History: 63 y.o. h/o endometrial ablation LNMP more than 10 years ago No bleeding or spotting until early September 2023 Procedure: Informed consent signed. Patient was taken to the operating room. Anesthesia was induced. Patient was placed in dorsolithotomy position, prepped and draped for hysteroscopy. A bivalve speculum was placed in the vagina. The anterior lip of the cervix was grasped with a sharp-toothed tenaculum. The cervix was serially dilated with Hegar dilators. . A hysteroscope was placed into the endometrial cavity. The endometrial cavity was seen moderate amounts of endometrial tissue. There were two endometrial polyps. A Myosure was then inserted and the polyps were removed . Endometrial tissue was also sent to pathology. The endometrial cavity was seen to be intact. The hysteroscope and Myosure were then removed. Endometrial curettage was done with a sharp curette. Endometrial tissue was sent to pathology. The sharp-toothed tenaculum was removed. There was no bleeding from the endometrial cavity or cervix. The patient was then placed supine and awakened and taken to the PACU. Postop condition: stable EBL: none Sponge and instruments counts were normal x 2 Complications: none
[2023-11-01] MEDS: fentaNYL 50 mcg/mL INJ 2mL IVP ×2 (10:18→10:30)
[2023-11-01] MEDS: ondansetron 2 mg/ML SDV 2 mL 4 MG IVP (10:20)
--- NOTE | 2023-11-01 10:45 | ANE.PACU2 ---
Inpatient post-anesthesia follow up: Airway intact: Yes Vital signs: Temperature 97.7 F Pulse Rate 68 Respiratory Rate 17 Blood Pressure 156/79 Pulse Oximetry 91 Oxygen Delivery Me thod Room Air Oxygen Flow Rate 8 Fraction of Inspir ed Oxygen Hydration adequate: Yes Nausea and vomiting: No Pain level: 1 Mental status: Baseline
[2023-11-01] MEDS: HYDROmorphone 1 mg/mL INJ 1 mL 0.5 MG IVP (11:06)
[2023-11-01] MEDS: ketorolac 30 mg/mL INJ 15 MG IVP (11:06)
== END 2023-11-01 11:50 | disposition home or self-care (01) ==
PROVIDERS: Anesthesiology; PCP Family Medicine; Visit Provider Obstetrics & Gynecology
PROC: 0UJD8ZZ Inspection of Uterus and Cervix, Via Natural or Artificial Opening Endoscopic (ICD-10-PCS; CPT 58555; principal; 2023-11-01 09:25)
PROC: (CPT 58558; 2023-11-01 09:25)
DX: N84.0 Polyp of corpus uteri (principal)
CPT/HCPCS: 58558; 36415; 80053; 85025; 88305; J1100; J1170; J1885; J2405; J2704; J3010; J7030

== ENCOUNTER 2023-11-21 12:06 | Inpatient (IN) | payer OTHER, SELFPAY ==
[2023-11-21] VITALS (11 sets, daily range): BP systolic 120–191; BP diastolic 70–97; PULSE 72–90; RESP 18; TEMP 36.4–36.8; O2SAT 91–97; BMI 42.9
[2023-11-21 12:43] LABS: Basophils % 0.5 %; Eosinophils # 0.2 10^3/uL (0.0-0.8); Eosinophils % 2.7 %; Hematocrit 50.2 % (36-47); Lymphocytes # 1.5 10^3/uL (0.8-4.8); Lymphocytes % 17.2 %; Mean Corpuscular HGB Conc 34.7 g/dL (30-55); Mean Corpuscular Hemoglobin 34.5 pg (27-33); Mean Corpuscular Volume 99.4 fl (85-98); Mean Platelet Volume 10.1 fL (7.4-10.4); Monocytes # 0.6 10^3/uL (0.2-0.9); Neutrophils # 6.08 10^3/uL (1.8-7.7); Neutrophils % 72.2 %; Nucleated Red Blood Cells % 0 %; Platelet Count 148 10^3/cmm (157-399); Red Blood Count 5.05 10^6/uL (3.85-5.65); Red Cell Distribution Width 12.8 % (12.1-15.1); White Blood Count 8.42 10^3/uL (3.29-11.43)
[2023-11-21 13:02] LABS: Alanine Aminotransferase 49 U/L (0-33); Alkaline Phosphatase 115 U/L (35-105); Anion Gap 13.8 (5-19); Aspartate Amino Transferase 26 U/L (0-32); Blood Urea Nitrogen 9 mg/dL (8-23); Calcium 9.3 mg/dL (8.5-10.5); Carbon Dioxide 29 mmol/L (22-29); Chloride 98 mmol/L (98-107); Creatinine Clr Calc Pharmacy 104.1614; Globulin 3.7 g/dL (1.3-4.6); Glomerular Filtration Rate 85.1 mL/min (90-130); Glucose 124 mg/dL (65-115); Lipase 26 U/L (13-60); Osmolality Calculated 284 mOsm/kg (285-295); Potassium 3.8 mmol/L (3.5-5.1); Sodium 137 mmol/L (136-145); Total Bilirubin 1.1 mg/dL (0.15-1.2); Total Protein 7.7 g/dL (6.6-8.7)
--- NOTE | 2023-11-21 13:23 | W.ED.ABDPA2 ---
HPI - Abdominal Pain General: Chief Complaint: Abdominal Pain Stated Complaint: abd, nausea Time Seen by Provider: 11/21/23 13:23 Source: patient Mode of arrival: ambulatory Limitations: no limitations History of Present Illness: Patient is a nice 63-year-old female presents to ED today for evaluation of severe lower abdominal pain, erythema, and warmth. She states last week sometime she accidentally struck her lower abdomen on a chair. She states I do not know if that has anything to do with that or not but states after this she began developing pain and redness. She states redness has significantly worsened and is now stating her entire lower abdomen is significantly warm to the touch and tender. Patient is concerned as she has an upcoming hysterectomy scheduled for next Sunday. She states a few weeks ago she underwent a hysteroscopy and D&C by Dr. Davila. She states based on these results as well as a family history of uterine cancer she was referred to an [employer] oncologist in [place]. Plan at this time is for a hysterectomy. She is concerned that her symptoms today might delay this. Patient is not running fevers however she feels incredibly nauseous and ill. MD elicited complaint: abdominal pain Pertinent past history: none Onset (ago): day(s) Pain Consistency: constant Location: Other (across lower abdomen) Severity: severe Radiation: none Migration to: no migration Exacerbating factors: nothing Relieving factors: nothing Associated Symptoms: Reports chills and nausea; Denies change in bowel habits, dysuria, fever(s) and vomiting Related Data: Patient : No Review of Systems Const: Reports: chills and malaise; Denies: fever(s), body aches or fatigue Card: Denies: chest pain Resp: Denies: dyspnea GI: Reports: abdominal pain and nausea; Denies: vomiting or change in bowel habits : Denies: flank pain, difficulty voiding, dysuria, urinary frequency, urinary urgency or urinary hesitancy Musc: Denies: neck pain, back pain, extremity pain or joint pain Skin/Breast: Reports: other (abdominal wall redness/warmth) Neuro: Denies: headache(s), numbness in extremities, weakness in extremities, sensory changes or dizziness [facility] ED PFSH: Medical History Dental abscess Shortness of breath Sleep apnea Hypertension H/O deep venous thrombosis Cellulitis Surgical History H/O total knee replacement Family History Father Colon cancer Mother Hypertension Uterine cancer Denies family history of Ovarian cancer Prostate cancer Diabetes Heart disease Hypercholesteremia Breast cancer Thyroid disease Stroke Physical Exam Const: COMMON NORMALS: patient oriented x3, no limitations, alert and well nourished GENERAL APPEARANCE: cooperative and in distress (appears like she does not feel well) NUTRITIONAL APPEARANCE: obese morbidly obese (BMI 42.9) ORIENTATION/CONSCIOUSNESS: Yes awake, Yes oriented to person, Yes oriented to place and Yes oriented to time HENMT: COMMON NORMALS: normocephalic and atraumatic HEAD & SCALP: normal to inspection, normocephalic and atraumatic Eye: COMMON NORMALS: no scleral icterus Resp: COMMON NORMALS: normal respiratory effort and clear to auscultation bilaterally AUSCULTATION: clear to auscultation bilaterally Cardio: COMMON NORMALS: regular rate and regular rhythm RATE: regular rate RHYTHM: regular rhythm GI: COMMON NORMALS: no masses INSPECTION: Yes other (significant lower abdominal cellulitis present; warmth) AUSCULTATION: Yes normoactive bowel sounds PALPATION: Yes Tenderness to palpation present (GI) OTHER: pt has significant cellulitis, warmth, induration affecting her entire lower abdomen and extending into mons pubis region-measurements are approximately 17 inches x 9 inches; there is extensive tenderness; no abscess formation visualized; no obvious areas of fluctuance : COMMON NORMALS: Yes no CVA tenderness BLADDER/KIDNEY EXAM: Yes no CVA tenderness Back/Pelvis: COMMON NORMALS: no CVA tenderness and thoracic and lumbar spine normal to inspection Extremity: GENERAL: Yes normal exam except as noted Neuro: CHRIS COMA SCALE: document GCS findings [place] coma scale eye opening: Spontaneous Chris coma scale verbal response: Orientated Chris coma scale motor response: Obey commands [place] coma scale total score: 15 COMMON NORMALS: patient oriented x3 SENSORIUM/ORIENTATION: Yes alert, Yes oriented to person, Yes oriented to place and Yes oriented to time Skin: NARRATIVE SKIN EXAM: see above/abdominal findings Course Consultations: Consultation #1: Dr. Morillo-accepts hospitalization Vital Signs: Vital signs: Vital Signs Temperature 98.1 F 11/21/23 12:50 Pulse Rate 86 11/21/23 12:50 Respiratory Rate 18 11/21/23 14:08 Blood Pressure 191/97 11/21/23 12:50 Pulse Oximetry 97 11/21/23 12:50 Oxygen Delivery Me thod Room Air 11/21/23 12:50 MDM - Abdominal Pain Medical Decision Making Patient is a nice 63-year-old female here for an extremely large area of cellulitis to her lower abdomen. Cellulitic measurements approximately 17 inches x 9 inches. She clinically feels ill. Her vitals are reassuring. She does have a normal white count. Her CRP is significantly elevated at 68.1. CT scan showing prominent varicosities along with underlying induration compatible with cellulitis. No drainable abscess or fluid collection. At this time due to extensiveness of infection, she will require hospitalization and IV antibiotics. Lab Data 11/21/23 12:34 11/21/23 12:34 Labs/Radiology: Radiology Impressions Abdomen/Pelvis CT 11/21/23 13:33 IMPRESSION: 1. Prominent varicosities in the lower ventral abdominal wall and pelvic pannus with underlying induration compatible with cellulitis. No drainable abscess or fluid collection. 2. Enlarged RIGHT greater than LEFT inguinal lymph nodes most likely reactive considering cellulitis but technically indeterminant and recommend follow-up to resolution. Largest lymph node 2.5 cm RIGHT inguinal. 3. Diffuse soft tissue thickening at the cervix as seen on the recent ultrasound. Patient scheduled for hysterectomy. 4. IVC filter. 5. Diffuse fatty infiltration of the liver. Hepatomegaly. 6. Sigmoid diverticulosis. Laboratory Results WBC 8.42 10^3/uL (3.29-11.43) 11/21/23 12:34 RBC 5.05 10^6/uL (3.85-5.65) 11/21/23 12:34 Hgb 17.40 g/dL (11.27-16.99) H 11/21/23 12:34 Hct 50.2 % (36-47) H 11/21/23 12:34 MCV 99.4 fl (85-98) H 11/21/23 12:34 MCH 34.5 pg (27-33) H 11/21/23 12:34 MCHC 34.7 g/dL (30-55) 11/21/23 12:34 RDW 12.8 % (12.1-15.1) 11/21/23 12:34 Plt Count 148 10^3/cmm (157-399) L 11/21/23 12:34 MPV 10.1 fL (7.4-10.4) 11/21/23 12:34 Neut % (Auto) 72.2 % 11/21/23 12:34 Lymph % (Auto) 17.2 % 11/21/23 12:34 Bureau % (Auto) 7.0 % 11/21/23 12:34 Eos % (Auto) 2.7 % 11/21/23 12:34 Baso % (Auto) 0.5 % 11/21/23 12:34 Neut # (Auto) 6.08 10^3/uL (1.8-7.7) 11/21/23 12:34 Lymph # (Auto) 1.5 10^3/uL (0.8-4.8) 11/21/23 12:34 Bureau # (Auto) 0.6 10^3/uL (0.2-0.9) 11/21/23 12:34 Eos # (Auto) 0.2 10^3/uL (0.0-0.8) 11/21/23 12:34 Baso # (Auto) 0.0 10^3/uL (0.0-0.1) 11/21/23 12:34 Nucleated RBC % (auto) 0 % 11/21/23 12:34 Nucleated RBCs # 0.0 /100WBC 11/21/23 12:34 Sodium 137 mmol/L (136-145) 11/21/23 12:34 Potassium 3.8 mmol/L (3.5-5.1) 11/21/23 12:34 Chloride 98 mmol/L (98-107) 11/21/23 12:34 Carbon Dioxide 29 mmol/L (22-29) 11/21/23 12:34 Anion Gap 13.8 (5-19) 11/21/23 12:34 BUN 9 mg/dL (8-23) 11/21/23 12:34 Creatinine 0.7 mg/dL (0.5-0.9) 11/21/23 12:34 GFR Calculation 85.1 mL/min (90-130) L 11/21/23 12:34 Glucose 124 mg/dL (65-115) H 11/21/23 12:34 Calculated Osmolality 284 mOsm/kg (285-295) L 11/21/23 12:34 Calcium 9.3 mg/dL (8.5-10.5) 11/21/23 12:34 Total Bilirubin 1.1 mg/dL (0.15-1.2) 11/21/23 12:34 AST 26 U/L (0-32) 11/21/23 12:34 ALT 49 U/L (0-33) H 11/21/23 12:34 Alkaline Phosphatase 115 U/L (35-105) H 11/21/23 12:34 C-Reactive Protein 68.1 mg/L (0.0-4.9) H 11/21/23 12:34 Total Protein 7.7 g/dL (6.6-8.7) 11/21/23 12:34 Albumin 4.0 g/dL (3.5-5.2) 11/21/23 12:34 Globulin 3.7 g/dL (1.3-4.6) 11/21/23 12:34 Lipase 26 U/L (13-60) 11/21/23 12:34 Urine Color Yellow (Yellow) 11/21/23 13:03 Urine Appearance Clear (CLEAR) 11/21/23 13:03 Urine pH 7 (5-7) 11/21/23 13:03 Ur Specific [place] 1.010 (1.005-1.030) 11/21/23 13:03 Urine Protein Neg (Negative) 11/21/23 13:03 Urine Glucose (UA) Norm (Normal) 11/21/23 13:03 Urine Ketones Negative (Negative) 11/21/23 13:03 Urine Blood Neg (Negative) 11/21/23 13:03 Urine Nitrate Negative (Negative) 11/21/23 13:03 Urine Bilirubin Neg (Negative) 11/21/23 13:03 Urine Urobilinogen Norm mg/dL (Negative) 11/21/23 13:03 Ur Leukocyte Esterase Negative (Negative) 11/21/23 13:03 All radiology interpretation(s) finalized by discharge Discharge Plan Discharge Patient Disposition: Admitted As Inpatient Clinical Impression: Abdominal wall cellulitis Condition: Stable Prescriptions: No Action furosemide [Lasix] 20 mg tablet 20 mg PO BID potassium chloride 10 mEq capsule, extended release 10 meq PO DAILY escitalopram oxalate [Lexapro] 20 mg tablet 20 mg PO DAILY metoprolol succinate 100 mg tablet extended release 24 hr 100 mg PO DAILY hydrochlorothiazide 12.5 mg tablet 12.5 mg PO DAILY montelukast 10 mg tablet 10 mg PO DAILY Referrals: Lane Krause MD [Primary Care Provider] - Coding Level of Care Code ED Corporate Travel Consultant for Chelly Meyer
[2023-11-21 13:24] LABS: Add Urine Microscopic? NO; Charge for UA Resulting for Rev
[2023-11-21 13:33] LABS: Bilirubin Urine Neg (Negative); Blood Urine Neg (Negative); Glucose Urine UA Norm (Normal); Ketones Urine Negative (Negative); Leukocyte Esterase Urine Negative (Negative); Nitrate Urine Negative (Negative); Protein Urine Neg (Negative); Urine Appearance Clear (CLEAR); Urine Color Yellow (Yellow); Urobilinogen Urine Norm (Negative); pH Urine 7 (5-7)
--- NOTE | 2023-11-21 13:33 | CT_ITS ---
WS: [id number] CT ABDOMEN PELVIS TECHNIQUE: Contrast-enhanced CT of the abdomen and pelvis with coronal and sagittal reformatted image s. CLINICAL INFORMATION: severe low abd pain; significant cellulitis COMPARISON: None. DLP: 1147.[address] scans at [facility] use at least one of these dose optimization techniques: automated e xposure control; mA and/or kV adjustment per patient size (includes targeted exams where dose is matc hed to clinical indication); or iterative reconstruction. FINDINGS: Hepatomegaly. Diffuse fatty infiltration of the liver. Prior cholecystectomy. Normal GE junction. Nor mal spleen. Lung bases are well aerated. Normal pancreatic parenchymal enhancement. Adrenal glands ar e normal. Tiny LEFT adrenal adenoma. RIGHT adrenal gland is normal. Celiac and SMA are patent. Normal caliber abdominal aorta. Aortic calcification. IVC filter. Normal renal parenchymal enhancement. No hydronephrosis. Sigmoid diverticulosis. No evidence of acute diverticulitis. Tiny fat-containing umbilical hernia. So ft tissue thickening at the cervix as seen on the recent ultrasound. Varicosities in the subcutaneous lower abdominal wall and pelvic pannus. Associated induration in the underlying anterior pelvic and abdominal subcutaneous fat compatible with cellulitis. No drainable a bscess or fluid collection. Enlarged RIGHT greater than LEFT inguinal lymph nodes most likely reactiv e. Largest RIGHT inguinal lymph node measures 2.5 cm. Moderate spondylitic changes lumbar spine. Pelv ic varicosities. CT/CT abdomen pelvis w con* [id number] IMPRESSION: 1. Prominent varicosities in the lower ventral abdominal wall and pelvic jacqui s with underlying induration compatible with cellulitis. No drainable abscess o r fluid collection. 2. Enlarged RIGHT greater than LEFT inguinal lymph nodes most likely reactive considering cellulitis but technically indeterminant and recommend follow-up to resolution. Largest lymph node 2.5 cm RIGHT inguinal. 3. Diffuse soft tissue thickening at the cervix as seen on the recent ultrasou nd. Patient scheduled for hysterectomy. 4. IVC filter. 5. Diffuse fatty infiltration of the liver. Hepatomegaly. 6. Sigmoid diverticulosis.
[2023-11-21] MEDS: iohexol 350 mg/mL 500 mL Btl (per mL) IV (13:59)
[2023-11-21] MEDS: morphine 4 mg/mL SDV 1 mL IVP (14:08)
[2023-11-21] MEDS: ondansetron 2 mg/ML SDV 2 mL 4 MG IVP (14:09)
[2023-11-21 14:10] LABS: C Reactive Protein 68.1 mg/L (0.0-4.9)
--- NOTE | 2023-11-21 15:01 | PC.NURSE ---
BLOOD CULTURES BEING DRAWN PRIOR TO STARTING ABX. LAB CALLED, JAJA COLLECTING NOW.
[2023-11-21] MEDS: metoclopramide 5 mg/mL SDV 2 mL 10 MG IVP (15:21)
[2023-11-21] MEDS: HYDROmorphone 1 mg/mL INJ 1 mL IVP (15:21)
--- NOTE | 2023-11-21 15:25 | PM.HP ---
Providers/Chief Complaint Primary Care Provider: Lane Krause MD Chief Complaint: abd, nausea History of Present Illness Susanne Olivas is a 63 year old female presented to the hospital with chief complaint of worsening redness and pain of abdominal pannus. Patient is stating that she noticed a small bump when she had a mechanical trauma from her lower abdominal wall, it started with a small area this below her umbilicus which has worsened with spreading of erythema, tenderness involving her vulvar area as well, she has not noticed any nausea vomiting or significant fever, patient is stating that she was scheduled for [employer] oncology evaluation at [place] which will be postponed, she recently had vaginal exam no laparoscopic procedure were done. She never noticed any spider bite, she is not diabetic no history of immunocompromise state. Stating that her blood pressure has been uncontrolled. Review of Systems Const: Denies: fever(s) Eyes: Denies: change in vision ENMT: Denies: throat pain Card: Denies: chest pain Resp: Denies: dyspnea GI: Denies: abdominal pain : Denies: flank pain Musc: Denies: neck pain Skin/Breast: Reports: rash, pruritus, erythema, skin tenderness, skin swelling and non-healing lesions Neuro: Denies: headache(s) Psych: Denies: anxiety Medications/Allergies Home Medications Medication Instructions Recorded Confirmed Last Taken Type escitalopram oxalate 20 mg tablet 20 mg PO DAILY 09/04/19 10/31/23 10/31/23 History (Lexapro) furosemide 20 mg tablet (Lasix) 20 mg PO BID 09/04/19 10/31/23 10/31/23 History potassium chloride 10 mEq 10 meq PO DAILY 09/04/19 10/31/23 10/31/23 History capsule,extended release metoprolol succinate 100 mg 100 mg PO DAILY 12/01/20 11/01/23 11/01/23 History tablet,extended release 24 hr hydrochlorothiazide 12.5 mg tablet 12.5 mg PO DAILY 01/02/22 11/01/23 11/01/23 History montelukast 10 mg tablet 10 mg PO DAILY 01/04/22 11/01/23 11/01/23 History Allergies Allergy/AdvReac Type Severity Reaction Status Date / Time lisinopril Allergy ADR-Cough Verified 10/10/23 13:10 losartan Allergy ALGY-Rash Verified 10/10/23 13:10 PFSH Acute PFSH: Medical History Dental abscess Shortness of breath Sleep apnea Hypertension H/O deep venous thrombosis Cellulitis Surgical History H/O total knee replacement Family History Father Colon cancer Mother Hypertension Uterine cancer Denies family history of Ovarian cancer Prostate cancer Diabetes Heart disease Hypercholesteremia Breast cancer Thyroid disease Stroke Vitals/I&O/Wt Last Vital Signs Temp 98.1 F 11/21/23 12:50 Pulse 86 11/21/23 12:50 Resp 18 11/21/23 14:08 BP 191/97 11/21/23 12:50 Pulse Ox 97 11/21/23 12:50 O2 Del Method Room Air 11/21/23 12:50 Weight last 48 hrs Weight 113.398 kg Physical Exam Narrative: Patient is awake and alert GCS 15 Nonfocal neuroexam S1, S2 Hypertensive Erythema has been marked lower abdominal wall which is tender to touch with multiple areas of induration, significant inguinal lymphadenopathy, redness is extending all the way up to her superior portion of vulvar area, I do not see any drainage, Currently patient is on room air Data 11/21/23 12:34 11/21/23 12:34 Micro: Microbiology 11/21/23 15:06 Blood Culture - Preliminary Blood SPECIMEN COLLECTED 11/21/23 15:06 Blood Culture - Preliminary Blood SPECIMEN COLLECTED A&P Assessment and plan (1) Morbid obesity with BMI of 40.0-44.9, adult: (2) Abnormal uterine bleeding: (3) Cellulitis: (4) Abdominal wall cellulitis: (5) Hypertensive urgency: Plan Nonpurulent cellulitis Patient is not immunocompromise Does not use steroids, she is not diabetic I will use toxin suppression medication clindamycin along antibiotics and antipseudomonal coverage with Zosyn Will request blood cultures Will need to watch her erythema and marked the area on daily basis along use of topical antibiotic, no active signs of necrotizing fasciitis Will keep her on cardiac diet Hypertensive urgency Add hydralazine , Continue metoprolol and hydrochlorothiazide she has had allergies to lisinopril and losartan with cough and hives For now we will add hydralazine She has lymphedema from previous DVTs Full code Add DVT prophylaxis Attestations Medical Necessity Statement*: Anticipating stay in the hospital More than 2 midnights for area of redness involving vulvar area lower abdominal wall cellulitis Diagnoses Morbid obesity with BMI of 40.0-44.9, adult E66.01; Z68.41 Abnormal uterine bleeding N93.9 Cellulitis L03.90 Abdominal wall cellulitis L03.311 Hypertensive urgency I16.0
[2023-11-21] MEDS: vancomycin 1,000 MG in sodium chloride 0.9% 250 ML 250 MG IV (15:34)
[2023-11-21] MEDS: metoprolol tartrate 1 mg/1 mL SDV 5 mL 5 MG IVP (16:21)
--- NOTE | 2023-11-21 16:59 | PC.NURSE ---
REPORT CALLED TO JOSE, INFORMED JOSE OF PT B/P AND PT B/P MED THAT WAS GIVEN. [employer] BENNY PAIGE AWARE AND OKAYED PT TO BE TRANSFERRED TO MED SURG WITH B/P OF 145/100.
[2023-11-21] MEDS: clindamycin 900 MG/50 ML PREMIX 100 MG IV (18:33)
[2023-11-21] MEDS: hyDRALAzine 25 mg Tablet PO ×2 (18:45→18:46)
[2023-11-21] MEDS: piperacillin-tazobactam 3.375 GM in sodium chloride 0.9% (plus) 50 ML IV (19:19)
[2023-11-21] MEDS: ketorolac 30 mg/mL INJ IVP (19:32)
[2023-11-21] MEDS: morphine IR 15 mg Tablet PO (20:49)
[2023-11-21] MEDS: bacitracin ointment Pkt 1 EACH TOPICAL (20:50)
[2023-11-21] MEDS: trazodone 50 mg Tablet 25 MG PO (21:18)
[2023-11-21] MEDS: vancomycin 1,500 MG/300 ML PIGGYBACK 200 MG IV (23:00)
[2023-11-21 23:10] LABS: Estmated Average Glucose 128; Hemoglobin A1C 6.1 % (4.0-6.0)
[2023-11-22] VITALS (8 sets, daily range): BP systolic 128–153; BP diastolic 74–78; PULSE 69–83; RESP 16–20; TEMP 36.4–36.9; O2SAT 90–98
[2023-11-22] MEDS: clindamycin 900 MG/50 ML PREMIX 100 MG IV ×3 (02:25→17:20)
[2023-11-22] MEDS: morphine IR 15 mg Tablet PO ×3 (02:25→14:27)
[2023-11-22 05:24] LABS: Basophils % 0.5 %; Eosinophils # 0.3 10^3/uL (0.0-0.8); Eosinophils % 4.4 %; Hematocrit 43.7 % (36-47); Lymphocytes % 16.1 %; Mean Corpuscular HGB Conc 34.3 g/dL (30-55); Mean Corpuscular Hemoglobin 35.1 pg (27-33); Mean Corpuscular Volume 102.3 fl (85-98); Mean Platelet Volume 10.7 fL (7.4-10.4); Monocytes # 0.6 10^3/uL (0.2-0.9); Monocytes % 8.6 %; Neutrophils # 4.47 10^3/uL (1.8-7.7); Neutrophils % 70.1 %; Nucleated Red Blood Cells % 0 %; Platelet Count 144 10^3/cmm (157-399); Red Blood Count 4.27 10^6/uL (3.85-5.65); Red Cell Distribution Width 12.9 % (12.1-15.1); White Blood Count 6.38 10^3/uL (3.29-11.43)
[2023-11-22] MEDS: piperacillin-tazobactam 3.375 GM in sodium chloride 0.9% (plus) 50 ML IV ×3 (05:42→20:44)
[2023-11-22 05:49] LABS: Procalcitonin 0.11 ng/mL (0-0.5)
[2023-11-22 05:52] LABS: Anion Gap 13.2 (5-19); Blood Urea Nitrogen 10 mg/dL (8-23); C Reactive Protein 96.8 mg/L (0.0-4.9); Calcium 8.3 mg/dL (8.5-10.5); Carbon Dioxide 28 mmol/L (22-29); Chloride 97 mmol/L (98-107); Creatinine Clr Calc Pharmacy 94.6736; Glomerular Filtration Rate 72.9 mL/min (90-130); Glucose 129 mg/dL (65-115); Magnesium 2.1 mg/dL (1.7-2.3); Osmolality Calculated 281 mOsm/kg (285-295); Phosphorus 3.5 mg/dL (2.5-4.5); Potassium 3.2 mmol/L (3.5-5.1); Sodium 135 mmol/L (136-145)
[2023-11-22] MEDS: ketorolac 30 mg/mL INJ 15 MG IVP (08:20)
[2023-11-22] MEDS: metoprolol succinate ER (24 HR) 100 mg Tablet PO (08:21)
[2023-11-22] MEDS: hydroCHLOROthiazide 25 mg Tablet PO (08:21)
[2023-11-22] MEDS: bacitracin ointment Pkt 1 EACH TOPICAL ×3 (08:21→20:44)
[2023-11-22] MEDS: FUROsemide 20 mg Tablet PO (08:21)
[2023-11-22] MEDS: potassium chloride ER 10 mEq Tablet PO (08:21)
[2023-11-22] MEDS: hyDRALAzine 25 mg Tablet PO ×2 (08:21→17:19)
--- NOTE | 2023-11-22 08:56 | PC.PHAR ---
PT WANTS REFILLS DELIVERED WITH ANY NEW RX MEDICATIONS, FROM MEDS TO BEDS AT DISCHARGE
[2023-11-22] MEDS: potassium chloride ER 20 mEq Tablet 40 MEQ PO (09:20)
[2023-11-22] MEDS: vancomycin 1,500 MG/300 ML PIGGYBACK 200 MG IV ×2 (10:10→22:43)
--- NOTE | 2023-11-22 11:28 | P.PN_ITS ---
Subjective 2 Subjective: Replenish potassium Patient is not endorsing any worsening of symptoms today Laying flat Hypertensive On room air No overnight significant events Globin A1c 6.1 prediabetic range Vitals/I&O/Wt Last Vital Signs Temp 97.6 F 11/22/23 07:51 Pulse 72 11/22/23 07:51 Resp 18 11/22/23 09:20 BP 153/77 11/22/23 07:51 Pulse Ox 94 11/22/23 07:51 O2 Del Method Room Air 11/22/23 07:51 11/21/23 11/22/23 11/22/23 22:59 06:59 14:59 Intake Total 1030 / 1030 450 / 1480 340 / 340 Balance 1030 / 1030 450 / 1480 340 / 340 Weight last 48 hrs Weight 120.973 kg Weight 113.398 kg Physical Exam 2 Narrative: Awake and alert Laying flat GCS 15 Hemodynamic stable On room air Area of cellulitis and erythema slightly less dense as compared to yesterday I do not see any significant worsening beyond the borders of cellulitis demarcate area S1, S2 Tender abdominal area around cellulitis Data 11/22/23 04:44 11/22/23 04:44 Micro: Microbiology 11/21/23 15:06 Blood Culture - Preliminary Blood SPECIMEN COLLECTED 11/21/23 15:06 Blood Culture - Preliminary Blood SPECIMEN COLLECTED A&P Assessment and plan (1) Hypertensive urgency: (2) Morbid obesity with BMI of 40.0-44.9, adult: (3) Abnormal uterine bleeding: (4) Cellulitis: (5) Abdominal wall cellulitis: Plan Abdominal wall cellulitis Continue broad-spectrum antibiotics with clindamycin toxin suppression therapy No signs of necrotizing fasciitis Patient is prediabetic with hemoglobin A1c level 6.1 Continue monitoring for now Topical antibiotics on board as well Prediabetic range may benefit from metformin at the time of discharge Hypertensive urgency Added amlodipine to hydralazine, Lasix, metoprolol and hydrochlorothiazide regimen Hypokalemia: Replenished Full code Cardiac diet Plan to keep her here till Sunday Cultures negative to date Attestations 2 Medical Necessity Statement*: Continue medical management Diagnoses Hypertensive urgency I16.0 Morbid obesity with BMI of 40.0-44.9, adult E66.01; Z68.41 Abnormal uterine bleeding N93.9 Cellulitis L03.90 Abdominal wall cellulitis L03.311
[2023-11-22] MEDS: amlodipine 10 mg Tablet PO (11:54)
[2023-11-22] MEDS: ondansetron 2 mg/ML SDV 2 mL 4 MG IVP (13:52)
[2023-11-22] MEDS: lactulose oral liq 20 gm/30 mL UDC 30 GM PO (17:19)
[2023-11-22] MEDS: diphenhydrAMINE 25 mg Capsule PO (18:01)
[2023-11-22] MEDS: TRAMadol 50 mg Tablet 25 MG PO (20:44)
[2023-11-23] MEDS: pantoprazole DR 40 mg Tablet PO ×2 (00:08→09:00)
[2023-11-23] MEDS: metoclopramide 5 mg/mL SDV 2 mL IVP (00:08)
[2023-11-23] MEDS: clindamycin 900 MG/50 ML PREMIX 100 MG IV (02:07)
[2023-11-23 03:47] VITALS: BP 125/71; PULSE 82; RESP 18; TEMP 36.4; O2SAT 91
[2023-11-23] MEDS: piperacillin-tazobactam 3.375 GM in sodium chloride 0.9% (plus) 50 ML IV (04:27)
[2023-11-23] MEDS: TRAMadol 50 mg Tablet 25 MG PO (04:46)
[2023-11-23 05:25] LABS: Basophils % 0.3 %; Eosinophils # 0.2 10^3/uL (0.0-0.8); Eosinophils % 2.7 %; Hematocrit 43.4 % (36-47); Lymphocytes # 1.1 10^3/uL (0.8-4.8); Lymphocytes % 12.7 %; Mean Corpuscular HGB Conc 34.8 g/dL (30-55); Mean Corpuscular Hemoglobin 35.4 pg (27-33); Mean Corpuscular Volume 101.9 fl (85-98); Mean Platelet Volume 10.9 fL (7.4-10.4); Monocytes # 0.7 10^3/uL (0.2-0.9); Monocytes % 7.9 %; Neutrophils # 6.75 10^3/uL (1.8-7.7); Nucleated Red Blood Cells % 0 %; Platelet Count 157 10^3/cmm (157-399); Red Blood Count 4.26 10^6/uL (3.85-5.65); Red Cell Distribution Width 12.9 % (12.1-15.1); White Blood Count 8.89 10^3/uL (3.29-11.43)
[2023-11-23 05:43] LABS: Anion Gap 14.6 (5-19); Blood Urea Nitrogen 9 mg/dL (8-23); C Reactive Protein 134.5 mg/L (0.0-4.9); Calcium 8.6 mg/dL (8.5-10.5); Carbon Dioxide 27 mmol/L (22-29); Chloride 97 mmol/L (98-107); Creatinine Clr Calc Pharmacy 94.6736; Glomerular Filtration Rate 72.9 mL/min (90-130); Glucose 139 mg/dL (65-115); Osmolality Calculated 281 mOsm/kg (285-295); Potassium 3.6 mmol/L (3.5-5.1); Sodium 135 mmol/L (136-145)
[2023-11-23 07:50] VITALS: BP 132/76; PULSE 79; RESP 18; TEMP 36.5
--- NOTE | 2023-11-23 08:55 | CT_ITS ---
WS: [id number] CT ABDOMEN PELVIS TECHNIQUE: Contrast-enhanced CT of the abdomen and pelvis with coronal and sagittal reformatted image s. CLINICAL INFORMATION: abd wall cellulitis COMPARISON: CT 11/21/2023 DLP: 1357.[address] scans at [facility] use at least one of these dose optimization techniques: automated e xposure control; mA and/or kV adjustment per patient size (includes targeted exams where dose is matc hed to clinical indication); or iterative reconstruction. FINDINGS: Again seen are extensive varicosities with inflammatory stranding and induration in the subcutaneous abdominal wall fat and pelvic pannus. This appears slightly progressed compared to previous. No evide nce of drainable abscess or fluid collection. Some of this may be due to edema. Recommend correlation for cellulitis. No other significant changes compared to previous. Enlarged RIGHT greater than LEFT inguinal lymph nodes most likely reactive appear unchanged. Largest RIGHT inguinal lymph node measures 2.5 cm. Pelvic varicosities. Hepatomegaly. Diffuse fatty infiltration of the liver. Prior cholecystectomy. Normal GE junction. Nor mal spleen. Slight atelectasis RIGHT lower lobe. Normal pancreatic parenchymal enhancement. Adrenal g lands are normal. Tiny LEFT adrenal adenoma. RIGHT adrenal gland is normal. Spondylitic changes lumba r spine. Normal caliber abdominal aorta. Aortic calcification. IVC filter. Normal renal parenchymal enhancemen t. No hydronephrosis. Sigmoid diverticulosis. No evidence of acute diverticulitis. Tiny fat-containin g umbilical hernia. Soft tissue thickening at the cervix as seen on recent ultrasound. Patient schedu led for hysterectomy. CT/CT abdomen pelvis w con* [id number] IMPRESSION: 1. Again seen are extensive varicosities with inflammatory stranding and indur ation in the subcutaneous abdominal wall fat and pelvic pannus. This appears sl ightly progressed compared to previous in the abdominal wall fat. No evidence o f drainable abscess or fluid collection. Recommend correlation for cellulitis. 2. No other significant changes compared to previous. 3. Enlarged RIGHT greater than LEFT inguinal lymph nodes. 4. Diffuse soft tissue thickening of the cervix. Patient scheduled for hystere ctomy. 5. IVC filter
[2023-11-23] MEDS: FUROsemide 20 mg Tablet PO (09:00)
[2023-11-23] MEDS: hydroCHLOROthiazide 25 mg Tablet PO (09:00)
[2023-11-23] MEDS: amlodipine 10 mg Tablet PO (09:00)
[2023-11-23] MEDS: bacitracin ointment Pkt 1 EACH TOPICAL (09:01)
[2023-11-23] MEDS: metoprolol succinate ER (24 HR) 100 mg Tablet PO (09:01)
[2023-11-23] MEDS: potassium chloride ER 10 mEq Tablet PO (09:01)
[2023-11-23] MEDS: hyDRALAzine 25 mg Tablet PO (09:01)
[2023-11-23] MEDS: iohexol 350 mg/mL 500 mL Btl (per mL) IV (09:23)
--- NOTE | 2023-11-23 11:22 | PM.DCS ---
Discharge Providers Date of Admission: 11/21/23 15:44 Date of Discharge: November 23, 2023 Attending Provider at Admission: Chris Morillo MD Attending Provider at Discharge: Chris Morillo MD Primary Care Provider: Lane Krause MD Diagnoses at Discharge Discharge Diagnosis (1) Hypertensive urgency: Status: Acute (2) Morbid obesity with BMI of 40.0-44.9, adult: Status: Acute (3) Abnormal uterine bleeding: Status: Acute (4) Cellulitis: Status: Acute (5) Abdominal wall cellulitis: Status: Acute Reason for Visit Reason for Visit: abd, nausea Hospital Course Hospital Course 63-year female who was admitted for management evaluation hypertensive urgency and abdominal wall cellulitis without any purulence, CT abdomen pelvis did not show any sign of abscess or fluid collection, she was admitted and given clindamycin along vancomycin and Zosyn for 2 days, repeat CT scan has not shown any development of abscess, it is consistent with cellulitis, patient has clinically done very well, I do not see any sign of necrotizing fasciitis, erythema has been regressing, I do not see any progressive cellulitis signs on clinical exam, I will be able to discharge patient on 14 days of doxycycline and Augmentin course, for her hypertension I will add hydralazine and amlodipine. Physical Exam Narrative: Awake and alert Erythema progressing, it is not showing any signs of progression Nontender lymphadenopathy in the groin No signs of necrotizing fasciitis or Jennifer's gangrene Abdominal pannus erythema improving Awake and alert GCS 15 Nonfocal neuroexam Discharge Data Studies Completed and Pending Completed Studies During Hospitalization Category Date Time Status CT abdomen pelvis w con* [id number] Routine Cat Scan 11/23/23 08:[address] abdomen pelvis w con* [id number] Urgent Cat Scan 11/21/23 13:33 Completed Pending at discharge Category Date Time Status Blood Culture Stat Lab 11/21/23 15:06 Results Radiology Impressions Abdomen/Pelvis CT 11/23/23 08:55 IMPRESSION: 1. Again seen are extensive varicosities with inflammatory stranding and induration in the subcutaneous abdominal wall fat and pelvic pannus. This appears slightly progressed compared to previous in the abdominal wall fat. No evidence of drainable abscess or fluid collection. Recommend correlation for cellulitis. 2. No other significant changes compared to previous. 3. Enlarged RIGHT greater than LEFT inguinal lymph nodes. 4. Diffuse soft tissue thickening of the cervix. Patient scheduled for hysterectomy. 5. IVC filter Laboratory Results WBC 8.89 10^3/uL (3.29-11.43) 11/23/23 04:54 RBC 4.26 10^6/uL (3.85-5.65) 11/23/23 04:54 Hgb 15.10 g/dL (11.27-16.99) 11/23/23 04:54 Hct 43.4 % (36-47) 11/23/23 04:54 MCV 101.9 fl (85-98) H 11/23/23 04:54 MCH 35.4 pg (27-33) H 11/23/23 04:54 MCHC 34.8 g/dL (30-55) 11/23/23 04:54 RDW 12.9 % (12.1-15.1) 11/23/23 04:54 Plt Count 157 10^3/cmm (157-399) 11/23/23 04:54 MPV 10.9 fL (7.4-10.4) H 11/23/23 04:54 Neut % (Auto) 76.0 % 11/23/23 04:54 Lymph % (Auto) 12.7 % 11/23/23 04:54 [place] % (Auto) 7.9 % 11/23/23 04:54 Eos % (Auto) 2.7 % 11/23/23 04:54 Baso % (Auto) 0.3 % 11/23/23 04:54 Neut # (Auto) 6.75 10^3/uL (1.8-7.7) 11/23/23 04:54 Lymph # (Auto) 1.1 10^3/uL (0.8-4.8) 11/23/23 04:54 [place] # (Auto) 0.7 10^3/uL (0.2-0.9) 11/23/23 04:54 Eos # (Auto) 0.2 10^3/uL (0.0-0.8) 11/23/23 04:54 Baso # (Auto) 0.0 10^3/uL (0.0-0.1) 11/23/23 04:54 Nucleated RBC % (auto) 0 % 11/23/23 04:54 Nucleated RBCs # 0.0 /100WBC 11/23/23 04:54 Sodium 135 mmol/L (136-145) L 11/23/23 04:54 Potassium 3.6 mmol/L (3.5-5.1) 11/23/23 04:54 Chloride 97 mmol/L (98-107) L 11/23/23 04:54 Carbon Dioxide 27 mmol/L (22-29) 11/23/23 04:54 Anion Gap 14.6 (5-19) 11/23/23 04:54 BUN 9 mg/dL (8-23) 11/23/23 04:54 Creatinine 0.8 mg/dL (0.5-0.9) 11/23/23 04:54 GFR Calculation 72.9 mL/min (90-130) L 11/23/23 04:54 Glucose 139 mg/dL (65-115) H 11/23/23 04:54 Estimat Average Glucose 128 11/21/23 12:34 Hemoglobin A1c 6.1 % (4.0-6.0) H 11/21/23 12:34 Calculated Osmolality 281 mOsm/kg (285-295) L 11/23/23 04:54 Calcium 8.6 mg/dL (8.5-10.5) 11/23/23 04:54 Phosphorus 3.5 mg/dL (2.5-4.5) 11/22/23 04:44 Magnesium 2.1 mg/dL (1.7-2.3) 11/22/23 04:44 Total Bilirubin 1.1 mg/dL (0.15-1.2) 11/21/23 12:34 AST 26 U/L (0-32) 11/21/23 12:34 ALT 49 U/L (0-33) H 11/21/23 12:34 Alkaline Phosphatase 115 U/L (35-105) H 11/21/23 12:34 C-Reactive Protein 134.5 mg/L (0.0-4.9) H 11/23/23 04:54 Total Protein 7.7 g/dL (6.6-8.7) 11/21/23 12:34 Albumin 4.0 g/dL (3.5-5.2) 11/21/23 12:34 Globulin 3.7 g/dL (1.3-4.6) 11/21/23 12:34 Lipase 26 U/L (13-60) 11/21/23 12:34 Procalcitonin 0.11 ng/mL (0-0.5) 11/22/23 04:44 Urine Color Yellow (Yellow) 11/21/23 13:03 Urine Appearance Clear (CLEAR) 11/21/23 13:03 Urine pH 7 (5-7) 11/21/23 13:03 Ur Specific [place] 1.010 (1.005-1.030) 11/21/23 13:03 Urine Protein Neg (Negative) 11/21/23 13:03 Urine Glucose (UA) Norm (Normal) 11/21/23 13:03 Urine Ketones Negative (Negative) 11/21/23 13:03 Urine Blood Neg (Negative) 11/21/23 13:03 Urine Nitrate Negative (Negative) 11/21/23 13:03 Urine Bilirubin Neg (Negative) 11/21/23 13:03 Urine Urobilinogen Norm mg/dL (Negative) 11/21/23 13:03 Ur Leukocyte Esterase Negative (Negative) 11/21/23 13:03 Vitals Last Vital Signs Temp 97.7 F 11/23/23 07:50 Pulse 79 11/23/23 07:50 Resp 18 11/23/23 07:50 BP 132/76 11/23/23 07:50 Pulse Ox 91 11/23/23 03:47 O2 Del Method CPAP 11/23/23 07:50 Discharge Plan Discharge Patient Disposition: Home Condition: Stable Prescriptions: New hydralazine 25 mg Tablet 25 mg PO BID Qty: 60 3RF bacitracin 500 unit/gram Packet 500 unit topical TID Qty: 144 0RF amlodipine 10 mg Tablet 10 mg PO DAILY Qty: 90 3RF amoxicillin-pot clavulanate 875-125 mg tablet 1 tab PO BID Qty: 28 0RF doxycycline hyclate 100 mg tablet 100 mg PO BID 14 Days Qty: 28 0RF Continued furosemide [Lasix] 20 mg tablet 20 mg PO DAILY potassium chloride 10 mEq capsule, extended release 10 meq PO DAILY metoprolol succinate 100 mg tablet extended release 24 hr 100 mg PO DAILY montelukast 10 mg tablet 10 mg PO DAILY escitalopram oxalate 10 mg tablet 10 mg PO DAILY Changed hydrochlorothiazide 12.5 mg tablet 25 mg PO DAILY Qty: 60 0RF Discharge Orders: Discharge Order (Routine); Ordered 11/23/23 Ordered By: Chris Morillo Referrals: Lane Krause MD [Primary Care Provider] - (Please follow-up with on 12/03/2023 @ 1:30pm if this time will not work for you, you can reach them at [phone] to reschedule.) Discharge Diet: Cardiac Patient Instructions: Opioid Safety Activity Restrictions/Additional Instructions: In the hospital we treated you with clindamycin vancomycin and Zosyn for abdominal wall cellulitis, there was no drainable abscess or fluid collection. Cultures have been negative. I am discharging him on 14-day regimen of Augmentin and doxycycline you can also use topical antibiotics. For blood pressure I have added amlodipine 10 mg daily along hydralazine, also I have resumed your home medications for blood pressure only change for your home medication will be to take hydrochlorothiazide 25 mg instead of 12.5mg Discharge Attestations Time Spent in Discharge Care*: greater than 30 min Quality Metrics Clinical Quality Measures [ No reported AMI, CVA or VTE this stay] Coding Level of Care Code Acute Code for Chg Fwd Diagnoses Hypertensive urgency I16.0 Morbid obesity with BMI of 40.0-44.9, adult E66.01; Z68.41 Abnormal uterine bleeding N93.9 Cellulitis L03.90 Abdominal wall cellulitis L03.311
[2023-11-23 11:37] VITALS: BP 145/82; PULSE 81; RESP 16; TEMP 36.6; O2SAT 91
[2023-11-23 12:29] VITALS: BP 145/82; PULSE 81; RESP 16; TEMP 36.6; O2SAT 91
== END 2023-11-23 12:10 | disposition home or self-care (01) | DRG 305 ==
LOC: ER 15:18 → MEDSURG 15:44
PROVIDERS: Emergency Medicine; Admitting Provider Internal Medicine; Emergency Provider Physician Assistant; PCP Family Medicine; Visit Provider Internal Medicine
DX: I16.0 Hypertensive urgency (principal); L03.311 Cellulitis of abdominal wall; Z68.41 Body mass index [BMI] 40.0-44.9, adult; E87.6 Hypokalemia; E66.01 Morbid (severe) obesity due to excess calories; R73.03 Prediabetes; Z86.718 Personal history of other venous thrombosis and embolism; I89.0 Lymphedema, not elsewhere classified
CPT/HCPCS: 36415; 74177; 80048; 80053; 81003; 83036; 83690; 83735; 84100; 84145; 85025; 86140; 87040; 96365; 96375; 99285; J1170; J1885; J2270; J2405; J2543; J2765; J3370; J3490; J7050; Q9967

== ENCOUNTER 2024-01-09 13:11 | Emergency (ER) | payer OTHER, SELFPAY ==
--- NOTE | 2024-01-09 14:10 | USCV_ITS ---
Susanne Olivas Age: 63 Gender: F : 1960 Exam Date: 01/09/2024 14:39 Ordering Phys: Chichi Root MD Technologist: R [place] [facility] [place]: lt leg pain and swelling PROCEDURES: Venous duplex imaging was performed in only the left lower extremity. The following venous structures were evaluated: common femoral vein, profunda vein, proximal portion of the greater saphenous vein, superficial femoral vein, and the popliteal vein. In addition, the posterior tibial and peroneal trunk were evaluated. FINDINGS: There is non occluding dvt in the lt cfv and occluding thrombus throughout the entire great saph system the rest of the left leg is normal CONCLUSIONS Non occlusiive DVT in the left common femoral vein and occlusive thrombus throughout the GSV from the thigh to the calf Remainder LLE is normal Prelim to Dr. Root at time of study Brian Ron MD (Electronically Signed) Final Date: 09 January 2024 16:57 S
--- NOTE | 2024-01-09 14:18 | ED_ITS ---
HPI - Extremity Problem 2 General: Chief complaint: Extremity Problem,Nontraumatic Stated complaint: left leg swelling,pain, warm to touch Time Seen by Provider: 01/09/24 14:13 Source: patient Mode of arrival: ambulatory Limitations: no limitations History of Present Illness: 63-year-old female states that she has b een having some warmth and swelling to her left leg for the last 5 days. She states that she had a hysterectomy a week ago she had a history of DVT roughly 25 years ago in that same leg. She has had increased swelling and pain she rates her pain a 5 out of 10 she denies any fevers. Denies any shortness of breath. Associated symptoms: Deny chest pain, fever(s) or rash Review of Systems 2 Const: Denies: fever(s), chills, body aches or change in appetite ENMT: Denies: throat pain or dental pain Card: Denies: chest pain Resp: Denies: dyspnea GI: Denies: abdominal pain, nausea, vomiting or diarrhea Musc: Reports: extremity pain and extremity swelling; Denies: neck pain or back pain Skin/Breast: Denies: rash Neuro: Denies: headache(s) PFSH ED 2 PFSH: Medical History Hypertensive urgency Abdominal wall cellulitis Abnormal uterine bleeding Morbid obesity with BMI of 40.0-44.9, adult Dental abscess Shortness of breath Sleep apnea Hypertension H/O deep venous thrombosis Cellulitis Surgical History H/O total knee replacement Family History Father Colon cancer Mother Hypertension Uterine cancer Denies family history of Ovarian cancer Prostate cancer Diabetes Heart disease Hypercholesteremia Breast cancer Thyroid disease Stroke Physical Exam 2 Const: COMMON NORMALS: patient oriented x3 HENMT: COMMON NORMALS: normocephalic and atraumatic HEAD & SCALP: n ormocephalic and atraumatic Eye: COMMON NORMALS: Equal, round and reactive pupils present PUPIL: Yes Equal, round and reactive pupils present Neck/C-Spine: COMMON NORMALS: full ROM and supple Chest: COMMONS NORMALS: normal inspection of the chest Resp: COMMON NORMALS: normal respiratory effort Extremity: COMMON NORMALS: full ROM NARRATIVE EXTREMITY EXAM: Swelling noted to left leg distal pulses intact slight erythema to the leg noted Neuro: COMMON NORMALS: patient oriented x3, moves all extremities and no focal motor deficits Psych: COMMON NORMALS: mental status grossly normal, Normal thought process present and cooperative THOUGHT PROCESS: Normal thought process present Skin: COMMON NORMALS: no rashes or lesions noted and no wounds GENERAL SKIN EXAM: no rashes or lesions noted MDM - Extremity (Nontraumatic) Medical Decision Making Patient presents here with left leg swelling and pain ultrasound does show a DVT some slight erythema we will start her on Eliquis along with antibiotic and pain meds she is follow-up with PCP as scheduled next week return if worsening. Medical Records I reviewed the patient's medical records. Lab Data I reviewed the patient's lab results. 01/09/24 14:28 01/09/24 14:28 Laboratory Results WBC 6.27 10^3/uL (3.29-11.43) 01/09/24 14:28 RBC 4.56 10^6/uL (3.85-5.65) 01/09/24 14:28 Hgb 15.80 g/dL (11.27-16.99) 01/09/24 14:28 Hct 46.1 % (36-47) 01/09/24 14:28 MCV 101.1 fl (85-98) H 01/09/24 14:28 MCH 34.6 pg (27-33) H 01/09/24 14:28 MCHC 34.3 g/dL (30-55) 01/09/24 14:28 RDW 14.1 % (12.1-15.1) 01/09/24 14:28 Plt Count 198 10^3/cmm (157-399) 01/09/24 14:28 MPV 10.0 fL (7.4-10.4) 01/09/24 14:28 Neut % (Auto) 63.1 % 01/09/24 14:28 Lymph % (Auto) 20.1 % 01/09/24 14:28 [place] % (Auto) 7.8 % 01/09/24 14:28 Eos % (Auto) 8.1 % 01/09/24 14:28 Baso % (Auto) 0.6 % 01/09/24 14:28 Neut # (Auto) 3.95 10^3/uL (1.8-7.7) 01/09/24 14:28 Lymph # (Auto) 1.3 10^3/uL (0.8-4.8) 01/09/24 14:28 [place] # (Auto) 0.5 10^3/uL (0.2-0.9) 01/09/24 14:28 Eos # (Auto) 0.5 10^3/uL (0.0-0.8) 01/09/24 14:28 Baso # (Auto) 0.0 10^3/uL (0.0-0.1) 01/09/24 14:28 Nucleated RBC % (auto) 0 % 01/09/24 14:28 Nucleated RBCs # 0.0 /100WBC 01/09/24 14:28 ESR 10 mm/hr (0-15) 01/09/24 14:28 Sodium 138 mmol/L (136-145) 01/09/24 14:28 Potassium 3.8 mmol/L (3.5-5.1) 01/09/24 14:28 Chloride 98 mmol/L (98-107) 01/09/24 14:28 Carbon Dioxide 27 mmol/L (22-29) 01/09/24 14:28 Anion Gap 16.8 (5-19) 01/09/24 14:28 BUN 14 mg/dL (8-23) 01/09/24 14:28 Creatinine 0.9 mg/dL (0.5-0.9) 01/09/24 14:28 GFR Calculation 63.7 mL/min (90-130) L 01/09/24 14:28 Glucose 99 mg/dL (65-115) 01/09/24 14:28 Calculated Osmolality 287 mOsm/kg (285-295) 01/09/24 14:28 Calcium 9.3 mg/dL (8.5-10.5) 01/09/24 14:28 Total Bilirubin 0.6 mg/dL (0.15-1.2) 01/09/24 14:28 AST 46 U/L (0-32) H 01/09/24 14:28 ALT 62 U/L (0-33) H 01/09/24 14:28 Alkaline Phosphatase 108 U/L (35-105) H 01/09/24 14:28 C-Reactive Protein 17.9 mg/L (0.0-4.9) H 01/09/24 14:28 Total Protein 7.4 g/dL (6.6-8.7) 01/09/24 14:28 Albumin 4.0 g/dL (3.5-5.2) 01/09/24 14:28 Globulin 3.4 g/dL (1.3-4.6) 01/09/24 14:28 All radiology interpretation(s) finalized by discharge Discharge Plan Discharge Patient Disposition: Home Clinical Impression: Deep vein thrombosis of lower extremity Qualifiers: Chronicity: acute Laterality: left Condition: Stable Prescriptions: New hydrocodone-acetaminophen 5-325 mg tablet 1 tab PO Q6H PRN (Reason: pain) Qty: 14 0RF cephalexin 500 mg capsule 500 mg PO TID 7 Days Qty: 21 0RF Eliquis 5 mg tablet 10 mg PO BID 7 Days Qty: 28 0RF Rx Instructions: loading dose over first week Eliquis 5 mg tablet 5 mg PO Q12H Qty: 60 0RF No Action furosemide [Lasix] 20 mg tablet 20 mg PO DAILY potassium chloride 10 mEq capsule, extended release 10 meq PO DAILY metoprolol succinate 100 mg tablet extended release 24 hr 100 mg PO DAILY montelukast 10 mg tablet 10 mg PO DAILY escitalopram oxalate 10 mg tablet 10 mg PO DAILY amlodipine 10 mg Tablet 10 mg PO DAILY Qty: 90 3RF bacitracin 500 unit/gram Packet 500 unit topical TID Qty: 144 0RF hydralazine 25 mg Tablet 25 mg PO BID Qty: 60 3RF amoxicillin-pot clavulanate 875-125 mg tablet 1 tab PO BID Qty: 28 0RF hydrochlorothiazide 12.5 mg tablet 25 mg PO DAILY Qty: 60 0RF Discharge Orders: Discharge ED (Routine); Ordered 01/09/24 Ordered By: Chichi Root Referrals: Lane Krause MD [Primary Care Provider] - 4-7 days Discharge Diet: Advance as tolerated Discharge Activity: Resume usual activity Patient Instructions: Deep Vein Thrombosis (ED), Opioid Safety Coding Level of Care Code ED Aeronautical Research Engineer for Chelly Meyer
[2024-01-09 14:33] LABS: Basophils % 0.6 %; Eosinophils # 0.5 10^3/uL (0.0-0.8); Eosinophils % 8.1 %; Hematocrit 46.1 % (36-47); Lymphocytes # 1.3 10^3/uL (0.8-4.8); Lymphocytes % 20.1 %; Mean Corpuscular HGB Conc 34.3 g/dL (30-55); Mean Corpuscular Hemoglobin 34.6 pg (27-33); Mean Corpuscular Volume 101.1 fl (85-98); Monocytes # 0.5 10^3/uL (0.2-0.9); Monocytes % 7.8 %; Neutrophils # 3.95 10^3/uL (1.8-7.7); Neutrophils % 63.1 %; Nucleated Red Blood Cells % 0 %; Platelet Count 198 10^3/cmm (157-399); Red Blood Count 4.56 10^6/uL (3.85-5.65); Red Cell Distribution Width 14.1 % (12.1-15.1); White Blood Count 6.27 10^3/uL (3.29-11.43)
[2024-01-09 14:38] LABS: Erythrocyte Sedimentation Rate 10 mm/hr (0-15)
[2024-01-09 15:00] LABS: Alanine Aminotransferase 62 U/L (0-33); Alkaline Phosphatase 108 U/L (35-105); Anion Gap 16.8 (5-19); Aspartate Amino Transferase 46 U/L (0-32); Blood Urea Nitrogen 14 mg/dL (8-23); C Reactive Protein 17.9 mg/L (0.0-4.9); Calcium 9.3 mg/dL (8.5-10.5); Carbon Dioxide 27 mmol/L (22-29); Chloride 98 mmol/L (98-107); Creatinine Clr Calc Pharmacy 81.9545; Globulin 3.4 g/dL (1.3-4.6); Glomerular Filtration Rate 63.7 mL/min (90-130); Glucose 99 mg/dL (65-115); Osmolality Calculated 287 mOsm/kg (285-295); Potassium 3.8 mmol/L (3.5-5.1); Sodium 138 mmol/L (136-145); Total Bilirubin 0.6 mg/dL (0.15-1.2); Total Protein 7.4 g/dL (6.6-8.7)
[2024-01-09] MEDS: HYDROcodone-acetaminophen 5-325 mg Tablet 1 TAB PO (15:27)
[2024-01-09 15:35] VITALS: BP 123/87; PULSE 64; O2SAT 98
== END 2024-01-09 15:38 | disposition home or self-care (01) ==
PROVIDERS: Emergency Provider Emergency Medicine; PCP Family Medicine
DX: I82.412 Acute embolism and thrombosis of left femoral vein (principal); I10 Essential (primary) hypertension; E66.01 Morbid (severe) obesity due to excess calories; Z68.41 Body mass index [BMI] 40.0-44.9, adult; Z90.710 Acquired absence of both cervix and uterus
CPT/HCPCS: 36415; 80053; 85025; 85651; 86140; 93971; 99284

== ENCOUNTER 2024-12-22 08:49 | Outpatient (CLI) | payer OTHER, SELFPAY ==
--- NOTE | 2024-12-22 08:53 | CT_ITS ---
WS: [id number] EXAMINATION: Low dose screening chest CT. HISTORY: Significant smoking history TECHNIQUE: Multiple contiguous 3 mm axial images through the chest with low-dose technique and without contrast. Sagittal and coronal reconstructions. FINDINGS: Old reactive nodes within the mediastinum. No significant hilar or mediastinal adenopathy and no mediastinal or hilar mass. Lung opacities which appear to be old inflammatory change. No lung mass or discrete lung nodule identifiable in 2 planes is identified. There are old inflammatory pleural and pleural pericardial changes. CT/CT lung screening 91030 IMPRESSION: No discrete lung nodule identified. BI-RADS 1 follow-up 12 months.
== END 2024-12-22 08:50 | disposition home or self-care (01) ==
LOC: RAD 08:50
PROVIDERS: PCP Family Medicine; Visit Provider Family Medicine
DX: Z12.2 Encounter for screening for malignant neoplasm of respiratory organs (principal); F17.200 Nicotine dependence, unspecified, uncomplicated; R59.0 Localized enlarged lymph nodes; R91.8 Other nonspecific abnormal finding of lung field; R93.89 Abnormal findings on diagnostic imaging of other specified body structures
CPT/HCPCS: 71271

== ENCOUNTER 2025-01-07 13:40 | Outpatient (CLI) | payer OTHER, SELFPAY ==
[2025-01-07 14:06] VITALS: PULSE 85; RESP 18; O2SAT 95
== END 2025-01-07 13:41 | disposition home or self-care (01) ==
PROVIDERS: PCP Family Medicine; Visit Provider Family Medicine
DX: R06.02 Shortness of breath (principal); R94.2 Abnormal results of pulmonary function studies
CPT/HCPCS: 94060; 94726; 94729

== ENCOUNTER 2025-06-07 02:35 | Emergency (ER) | payer OTHER, SELFPAY ==
[2025-06-07 02:32] VITALS: BP 107/56; PULSE 78; RESP 18; TEMP 37.1; O2SAT 92; BMI 46.5
--- OUTSIDE RECORDS SUMMARY | 2025-06-07 02:39 | XMS_ITS | Encounter Summary ---
Author Organization [facility] Address 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
--- OUTSIDE RECORDS SUMMARY | 2025-06-07 02:39 | XMS_ITS | Clinical Summary ---
Author Organization [facility] Address [address] [facility] [facility] Attn: Epic Prelude ADT [place]M [place] [address] Care Team Providers Care Welt Rougher Name Role Phone Unavailable Primary Care Provider Unavailabl e Medications escitalopram oxalate (LEXAPRO) 10 mg tablet Take 10 mg by mouth daily. Active furosemide (LASIX) 20 mg tablet Take 20 mg by mouth daily. Active lisinopril-hydr oCHLOROthiazide (ZESTORETIC) 20-12.5 mg tablet Take 2 Tablets by mouth daily. Active potassium chloride (KLOR-CON) 10 mEq Extended Release tablet Take 10 mEq by mouth daily. Active traMADoL (ULTRAM) 50 mg tablet Take 100 mg by mouth every 6 hours as needed. 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 Gender Identity Not on file Sexual Orientation Not on file Last Filed Vital Signs Vital Sign Reading Time Taken Comments Blood Pressure 111/72 05/20/2016 9:23 AM CLINICAL MICROBIOLOGIST Pulse 89 05/20/2016 9:23 AM CLINICAL MICROBIOLOGIST Temperature 36.7 C (98 F) 05/20/2016 9:23 AM CLINICAL MICROBIOLOGIST Respiratory Rate 18 05/20/2016 9:23 AM CLINICAL MICROBIOLOGIST Oxygen Saturation - - Inhaled Oxygen Concentration - - Weight 108.4 kg (239 lb) 05/20/2016 9:23 AM CLINICAL MICROBIOLOGIST Height 160 cm (5' 3 ) 05/20/2016 9:23 AM CLINICAL MICROBIOLOGIST Body Mass Index 42.34 05/20/2016 9:23 AM CLINICAL MICROBIOLOGIST Plan of Treatment Health Maintenance Due Date Last Done Comments DTAP/TDAP/TD VACCINES (1 - Tdap) 1981 HPV/Cotest (21-29) 1983 CERVICAL CANCER SCREENING 1992 HPV/Cotest (30-65) 1992 PAP SMEAR 1992 BREAST CANCER SCREENING 2002 COLORECTAL SCREENING 2007 Colorectal Cancer Screening 2007 FIT-DNA Q 3 years 2007 FIT/FOBT Q 1 year 2007 Flex Sig/CT Colonography Q 5 years 2007 ZOSTER VACCINE (1 of 2) 2012 INFLUENZA VACCINE (#1) 2025 RSV VACCINE (60+ or ) (1 - 1-dose 75+ series) 2037
--- OUTSIDE RECORDS SUMMARY | 2025-06-07 02:39 | XMS_ITS | Encounter Summary ---
Author Organization [facility] Address 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
--- OUTSIDE RECORDS SUMMARY | 2025-06-07 02:39 | XMS_ITS | Encounter Summary ---
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
--- OUTSIDE RECORDS SUMMARY | 2025-06-07 02:39 | XMS_ITS | Encounter Summary ---
Author Organization [facility] Address 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
--- OUTSIDE RECORDS SUMMARY | 2025-06-07 02:39 | XMS_ITS | Encounter Summary ---
Author Organization [facility] Address [address] [place] [address] Care Team Providers Care Extension Supervisor Name Role Phone Ozzy Singh MD Primary Care Provider Unavail able Encounter Details Date Type Department Care Team (Late st Contact Info) Description 12/22/1998 Inpatient Historical [facility] INPATIENT IN BED Halie Rosario MD NO ADDRESS ON FILE Jocelyne Hutton MD [address] [place] [address] Other acute embolism veins (Primary Dx) Social History Tobacco Use Types Packs/Day Years Used Date Smoking Tobacco: Never Assessed Comments Unknown Sex and Gender Information Value Date Recorded Sex Assigned at Not on file 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
--- OUTSIDE RECORDS SUMMARY | 2025-06-07 02:39 | XMS_ITS | Encounter Summary ---
Author Organization [facility] Address [address] [place] [address] Care Team Providers Care Electric Distribution Engineer Name Role Phone Ozzy Singh MD Primary Care Provider Unavail able Encounter Details Date Type Department Care Team (Latest Contact Info) Description 01/22/1999 Outpatient Historical [facility] Florian Vernon MD [address] [address] Phlebitis and thrombophlebitis of lower extremities, unspecified (Primary Dx) Social History Tobacco Use Types Packs/Day Years Used Date Smoking Tobacco: Never Assessed Comments Unknown Sex and Gender Information Value Date Recorded Sex Assigned at Not on file Legal Sex Female 11:59 PM BASIN [employer]ER Gender Identity Not on file Sexual Orientation Not on file documented as of this encounter Plan of Treatment Not on file documented as of this encounter Visit Diagnoses Diagnosis Phlebitis and thrombophlebitis of lower extremities, unspecified- Primary documented in this encounter Care Teams Electric Distribution Engineer Relationship Specialty Start Date End Date Ozzy Singh MD NO ADDRESS ON FILE PCP - General 06/01/00 01/03/14 documented as of this encounter
--- OUTSIDE RECORDS SUMMARY | 2025-06-07 02:39 | XMS_ITS | Data Portability ---
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 Avai lable semagluti de 0.5 mg/0.1 mL subcutane ous syringe Using 1/0.5 semaglut sergo/Cyan ocobalam in 0.25 ml SQ weekly for 4 weeks, then 0.5 ml weekly 2024 active Not Available Not Available Not Avai lable semagluti de 0.25 mg/0.05 mL subcutane ous syringe Inject 0.25 mg every week by subcutan eous route for 30 days. 04/08 completed increase d Not Available Not Available Not Available Vitals Date Recorded Body height Body mass index (BMI) Body weight Respiratory rate Heart rate Oxygen saturation Body temperature Systolic And Diastolic Provider Name and Address Organization Details Last Updated DateTime 5 162.56 cm 45.2 kg/m2 841270. 59 g 20 /min 64 /min 93 % 98.3 [degF] 134/78 mm[Hg] [facility] 5 10:53:04 Date Recorded Body height Body mass index (BMI) Body weight Heart rate Oxygen saturation Respiratory rate Body temperature Systolic And Diastolic Provider Name and Address Organization Details Last Updated DateTime 5 162.56 cm 45.1 kg/m2 355106. 79 g 68 /min 95 % 20 /min 98.4 [degF] 120/70 mm[Hg] [facility] 5 09:37:39 Date Recorded Body height Body mass index (BMI) Body weight Respiratory rate Body temperature Oxygen saturation Heart rate Systolic And Diastolic Provider Name and Address Organization Details Last Updated DateTime 4 162.56 cm 43.9 kg/m2 804042. 85 g 20 /min 99.2 [degF] 97 % 64 /min 114/70 mm[Hg] [facility] 4 12:16:20 Date Recorded Body height Body mass index (BMI) Body weight Oxygen saturation Heart rate Respiratory rate Body temperature Systolic And Diastolic Provider Name and Address Organization Details Last Updated DateTime 5 162.56 cm 45.4 kg/m2 516863. 19 g 94 % 89 /min 20 /min 98.3 [degF] 124/68 mm[Hg] [facility] 5 11:06:29 Date Recorded Body height Body mass index (BMI) Body weight Oxygen saturation Heart rate Respiratory rate Body temperature Systolic And Diastolic Provider Name and Address Organization Details Last Updated DateTime 5 162.56 cm 45.4 kg/m2 995844. 49 g 95 % 76 /min 18 /min 98 [degF] 130/68 mm[Hg] THADDEUS RIVAS [facility] 5 14:50:50 Social History Question Answer Notes LastModified by [employer] ion Details LastModified Time Tobacco Smoking Status Current Every Day Smoker THADDEUS gerber [facility] 02/16/2023 12:15:44 Are You Blind Or Do You Have Difficulty Seeing? No Information not available 12/10/2024 Are You Deaf Or Do You Have Serious Difficulty Hearing? No Information not available 12/10/2024 What Was The Date Of Your Most Recent Tobacco Screening? 12/10/2024 Information not available 12/10/2024 What Is Your Relationship Status? Information not available 02/16/2023 At What Age Did You Start Smoking Tobacco? 20 Information not available 02/16/2023 How Much Tobacco Do You Smoke? 1 PPD Information not available 02/16/2023 Do You Have Difficulty Walking Or Climbing Stairs? No Information not available 12/10/2024 Sex: Unknown Functional Status Question Answer Note LastModified by Organizat ion Details LastModified Time How many times per week do you consume alcohol? 5-7 times per week Information not available 12/10/2024 Do you use any illicit or recreational drugs? No Information not available 12/10/2024 Do you or have you ever used any other forms of tobacco or nicotine? No Information not available 02/16/2023 What is your level of alcohol consumption? Moderate Information not available 12/10/2024 Are you currently employed? Yes Information not available 12/10/2024 Do you have transportation difficulties? No Information not available 12/10/2024 Are you able to walk independently without assistance or assistive devices? YESWOREST Information not available 12/10/2024 Do you have difficulty doing errands alone? No Information not available 12/10/2024 Are you able to care for yourself independently? Yes Information not available 02/16/2023 What is your occupation? nurse Information not available 12/10/2024 Do you have difficulty dressing, bathing, grooming, or toileting? No Information not available 12/10/2024 Mental Status Question Answer Note LastModified by Organization D etails LastModified Time Do you have difficulty concentrating, remembering or making decisions? No amb Information no t available 12/10/2024 Family History Relationship Description Onset Age of this Age Resolved Age Notes LastModified by Organization Details LastModified Time Father Family history of cancer of colon tneuschwander Not available 12:14:10 Mother Malignant neoplasm of uterus tneuschwander Not available 12:14:25 Maternal Grandfather Diabetes mellitus tneuschwander Not available 12:14:39 Maternal Grandfather Essential hypertension tneuschwander Not available 02/16/2023 12:15:07 Maternal Aunt Carcinoma of breast tneuschwander Not available 15:05:05 Medical History Condition Response Other Y Hypertension Y Gynecological HistoryNo gynecological history recorded. Obstetrics History GPAL:G 0 P 0 0 0 0 Immunizations Vaccine Type Date Status Note Provider Nam john and Address Organization Details Recorded Time Influenza, split virus, trivalent, preservative 2 completed THADDEUS gerber [facility] 02/16/2023 12:10:59 COVID-19, mRNA, LNP-S, PF, 100 mcg/0.5mL dose or 50 mcg/0.25mL dose 1 completed Mary gerber [facility] 02/29/2024 14:39:25 COVID-19, mRNA, LNP-S, PF, 100 mcg/0.5mL dose or 50 mcg/0.25mL dose 0 completed Mary gerber [facility] 02/29/2024 14:39:25 Past Encounters Encounter ID Performer Location Encounter Start Date Encounter Closed Date Diagnosis/Indication Diagnosis SNOMED-CT Code Diagnosis ICD10 Code Diagnosis IMO Codes Diagnosis Note [id number] Micky Dickerson MD [facility] ([facility]) [address] [place] [address] [phone] 02/16/2023 12:02:33 02/16/2023 17:39:45 Adult health examination 776414077 Z00.01 Screening for malignant neoplasm of colon 581346863 Z12.11 Pt is scheduled for a colonoscop y on 04/05/23. 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 Edema 898090375 R60.9 Tobacco de pendence syndrome 87799112 F17.200 Hypercholesterolemia 136 23173 E78.00 [id number] Micky Dickerson MD [facility] ([facility]) [address] [place] [address] [phone] 12/03/2023 14:16:51 12/03/2023 17:47:02 Essential hypertension 49172613 I10 Cellulitis of abdominal wall 78777941 L03.311 Family his tory of breast cancer 202231274 Z80.3 [id number] Micky Dickerson MD [facility] ([facility]) [address] [place] [address] [phone] 5 01/15/2024 11:27:24 01/15/2024 12:54:19 Essential hypertension 57636006 I10 Cellulitis of abdominal wall 58441031 L03.311 Deep venou s thrombosis 791027171 I82.541 [id number] Micky Dickerson MD [facility] ([facility]) [address] [place] [address] [id number] 5 12/10/2024 09:49:18 12/11/2024 10:37:25 Dyspnea on exertion 61487753 R06.02 350094 Fatigue 84726009 R53.83 28336544 Essential hypertension 50088627 I10 Mixed anxi ety and depressive disorder 723389647 F41.8 Edema 674751820 R60.9 Reactive a irway disease 1370542881 06 J45.909 History of deep vein thrombosis 652450737 Z86.346 2914911 Smoker 45046945 F17.200 693989 20+ pack year history of smoking [id number] Micky Dickerson MD [facility] ([facility]) [address] [place] [address] [phone] 5 01/12/2025 09:02:08 01/28/2025 07:37:21 Edema of lower extremity 960251565 R60.0 19199 Dyspnea on exertion 6084 5006 R06.02 525490 Fatigue 73403638 R53.83 31277165 Chest pain 81481009 R07. 89 92537 [id number] Micky Dickerson MD [facility] ([facility]) [address] [place] [address] [phone] 02/09/2025 10:16:57 02/09/2025 13:00:13 Edema of lower extremity 420920599 R60.0 46758 Essential hypertension 40208779 I10 Hyperglycemia 18681326 R 73.9 07671 Dyspnea 961177107 R06.02 28658 Pulmonary emphysema 8743 3001 J43.9 665302567 Chronic low back pain 27 8678397 G89.29 M54.42 35457500 Severe obesity 674716735 1 9104 E66.01 673261 [id number] Micky Dickerson MD [facility] ([facility]) [address] [place] [address] [id number] 5 04/08/2025 14:25:04 05/11/2025 07:36:13 Chronic low back pain 387144208 G89.29 M54.42 - Continuing therapy. - Encouraged reduction in smoking. - Therapy aimed at symptom relief. - Numbness addressed with possible nerve compressio n education. Dyspnea 061586727 R06.02 02211 Health Concerns Section Related Observation LastModified by Organization Detai ls LastModified Time None Recorded Concern Status LastModified by Organization Details LastModified Time None Recorded Advance Directives Directive None Recorded Payers Insurance Date Sequence Insurance Name Policy Number Policy Fisher Covered Member ID Fisher Member ID Guarantor Name 12/10/[address] [facility] (O) [id number] Susanne Olivas [id number] Susanne Olivas 05/11/2025 1 [employer] [id number] 1 Susanne Olivas [id number] Susanne Olivas Notes Date Note Type Note Provider Name and Address Organization Details Recorded Time 4 text/html Hypertension IM/FMReported by PatientHPIFor self care, patient reportssmoker. For associated symptoms, patient reportsexertional dyspneabut reportsno shortness of breath,no fatigue,no palpitations,no headaches, andno chest pain. For quality, patient reportshere for check-up (f/u after med adjustment). For severity, patient reportsnormal (<120/<80 mmhg)andmoderate. For duration, patient reportshtn present for ___ years. Pt had a hysterectomy x3-4 weeks ago. Pt went to ER x1 wk ago with left leg pain, swelling. Pt was dx with DVT and started on Eliquis. pt is wondering if she needs to take 25mg or 12.5mg of HCTZ? Micky Dickerson MD [address] [place] [address], [phone], [facility] 01/15/2024 12:49:54 5 text/html DyspneaReported by PatientHPIFor quality, patient reportstightness,can't catch breath, andbreathlessness. For aggravating factors, patient reportsactivityandwhen supine. For associated symptoms, patient reportsorthopnea,fatigue,we ight gain (___ lbs),ankle swelling, anddecrease in exercise capacitybut reportsno chest pain,no palpitations, andno fever. For severity, patient reportssevereandlimits activity. For duration, patient reportsfor 2 months. For onset/timing, patient reportsdailyandwith exertion. Hypertension IM/FMReported by PatientHPIFor self care, patient reportssmoker. For associated symptoms, patient reportsshortness of breath,fatigue,palpitations (occasional),exertional dyspnea, andheadachesbut reportsno chest pain(heaviness of chest). For quality, patient reportshere for check-up,weakness, andfatigue. For severity, patient reportsmoderate(pt has not been checking her blood pressure at home). For duration, patient reportshtn present for ___ years. For aggravating factors, patient reportsworse with activity. For risk factors, patient reportsobesity. fatigue, patient stated that has no energy She is having shortness of breath with minimal exertion, her shortness of breath is worse since having more swelling.She will wake up on some mornings with swelling, on those days she feels bloated and full all over.She stated that for the last 2 months her swelling has been constant, with 2-3 days of persistent swelling that does not decrease with elevation.During the times of increased swelling she will cough a lot at night.She has noticed that if she lays down without a CPAP, she feels she can not breath. She does use her CPAP every night, and usually will put it on before she lays down.When the swelling is bad, it can last 2-3 days. During this time she will also notice she is not urinating a normal amount, even when taking the lasix.Pt feels that every time she has increased shortness of breath episodes, it seems that her breathing does not recover fully. Pt is needing refills on her medications, she would like a years worth of refills pt is wondering if an ECHO would be a possibility Micky Dickerson MD [address] [place] [address], [phone], [facility] 12/20/2024 21:02:37 5 text/html DyspneaReported by PatientHPIFor quality, patient reportstightness,can't catch breath, andbreathlessness. For aggravating factors, patient reportsactivityandwhen supine. For associated symptoms, patient reportsorthopnea,fatigue,we ight gain (___ lbs),ankle swelling, anddecrease in exercise capacitybut reportsno chest pain,no palpitations, andno fever. For severity, patient reportssevereandlimits activity. For duration, patient reportsfor 2 months. For onset/timing, patient reportsdailyandwith exertion. fatigue, patient stated that has no energy- is unchanged. Shortness of breath is unchanged. Pt would like to have an echo done She stated that her swelling has improved. She still have some swelling in both lower extremities, but they are improved. Intermittently she will have swelling hands and face. She has noticed pain in the Left side of chest. This pain is intermittent, is worse with when pt gets upset and when she is under stress- like at work Micky Dickerson MD [address] [place] [address], [phone], [facility] 01/27/2025 23:52:52 5 text/html Pt states she is her to review her PFT which was done on 12/31/24 at [facility]. Pt is also here to get started on Ozempic and would like to get some zofran for nausea it may cause.Pt has been having low back pain worse on the left side, When pat walks for she will have pain and cramping that radiates down her left leg and into her groin. fatigue has improved. Shortness of breath is unchanged. She stated that her swelling has improved. She still have some swelling in both lower extremities, pt states she drove to [place] and her legs were huge from the swelling. Micky Dickerson MD [address] [place] [address], [phone], [facility] 02/09/2025 12:00:17 5 text/html Pt states she is going through a divorce and she has been smoking more .Shortness of breath is unchanged.Pt states since starting the second dose of Eliquis has helped.Pt will start PT the week of 04/13/25 for the back painThe patient is a 64 year old female presenting with management of chronic low back pain. Chronic low back pain: - Increased smoking noted as exacerbating factor. - Engaged in therapy for pain management. Lumbago with sciatica, left side: - Reports numbness in the leg and thigh in association with back pain during work. - Symptoms suspected to involve sciatic nerve. Micky Dickerson MD [address] [place] [address], [phone], [facility], [place] 05/07/2025 21:03:12 OBGyn Episode No OBEpisode recorded.
--- OUTSIDE RECORDS SUMMARY | 2025-06-07 02:39 | XMS_ITS | Encounter Summary ---
Author Organization [facility] Address 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
--- OUTSIDE RECORDS SUMMARY | 2025-06-07 02:39 | XMS_ITS | Encounter Summary ---
Author Organization [facility] Address 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
--- OUTSIDE RECORDS SUMMARY | 2025-06-07 02:39 | XMS_ITS | Encounter Summary ---
Author Organization [facility] Address [address] [place] [address] Care Team Providers Care Digital Strategist Name Role Phone Ozzy Singh MD Primary Care Provider Unavail able Encounter Details Date Type Department Care Team (Late st Contact Info) Description 05/15/1999 Outpatient Historical [facility] Douglas Spencer MD [address] [place] [address] Calculus of gallbladder without mention of cholecystitis or obstruction (Primary Dx) Social History Tobacco Use Types Packs/Day Years Used Date Smoking Tobacco: Never Assessed Comments Unknown Sex and Gender Information Value Date Recorded Sex Assigned at Not on file 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
--- OUTSIDE RECORDS SUMMARY | 2025-06-07 02:39 | XMS_ITS | Encounter Summary ---
Author Organization [facility] Address 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
--- OUTSIDE RECORDS SUMMARY | 2025-06-07 02:39 | XMS_ITS | Encounter Summary ---
Author Organization [facility] Address 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
--- OUTSIDE RECORDS SUMMARY | 2025-06-07 02:39 | XMS_ITS | Continuity of Care Document ---
Author Organization [place] - Cristofer [facility] Maty Winn, [facility] ([facility]) Address [address] [place] [address] Care Team Providers Care Picker Machine Operator Name Role Phone MICKY DICKERSON Primary Care Provider [phone] Assessment Encounter Date Assessment Date Assessment LastModified by Organization Details LastModified Time 04/08/2025 04/08/2025 - 64 year old female [...] Modified Time Details Appointments None recorded. Lab None recorded. Referral None recorded. Procedures None recorded. Surgeries None recorded. Imaging None recorded. Medication Orders tramadol 50 mg tablet 2024 025 [facility], [address] [place], [address], 10:11:50 Patient TargetsNo targets recorded. Patient Instructions Encounter Date Encounter Id Patient Instructions Last Modified By Organization Details Last Modified Time 04/08/2025 [id number] - Continue attending therapy sessions for your [...] Not available 04/08/2025 15:34:54 Reason for Referral None Reported. 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 Active 2021 DVT Mary gerber [facility] 4 14:39:15 Cholecyst ectomy Completed 202112/10/2024 BRYON gerber [facility] 5 10:29:49 Sleep apnea 06276714 Active 2021 Mary gerber [facility], Nancy.L.CDiogenes 4 14:39:12 Tonsillec aram Active 2021 Mary gerber [facility] L[facility]LD[facility]ogenes[facility] 4 14:39:19 Endometri osis Active 2021 BRYON gerber [facility] 5 10:29:54 Hysterosc opy Active 2021 Mary gerber [facility] L[facility]LD[facility]ogenes[facility] 4 14:39:08 History of tubal ligation 837132753 Active 2021 Mary gerber [facility], LDiogenesLDiogenesCDiogenes 4 14:39:05 Essential hypertens ion 84084976 Active 2022 BRYON NAPOLESY [facility] [place] [facility], [facility] 5 10:29:59 Hyperchol esterolem ia 90966750 Active 2022 BRYONELVIS NAPOLESY [facility] [place] [facility], [facility] 3 12:52:30 Family history of cancer of colon 049023603 Active 2023 BRYONELVIS NAPOLESY [facility], [facility] 4 15:53:00 Deep venous thrombosi s 507393338 Active 2023 BRYON HAMBY [facility] [place] [facility], [facility] 5 10:29:52 Edema of lower extremity 911646584 Active 2024 BRYON HAMBY [facility] 5 11:08:21 Dyspnea on exertion 63833406 Active 2024 BRYONELVIS OG [facility] [place] [facility], [facility] 5 11:08:23 Fatigue 96137913 Active 2024 BRYONELVIS OG [facility] [place] [facility], [facility] 5 11:08:51 History of deep vein thrombosi s 096535579 Active 2024 BRYON HAMBY [facility] [place] [facility], [facility] 5 11:10:02 Mixed anxiety and depressiv e disorder 361598380 Active 2024 BRYON HAMBY [facility] [place] [facility], [facility] 5 11:10:10 Reactive airway disease 572566901447 Active 2024 BRYON HAMBY [facility] 5 11:10:52 Edema 107354191 Active 2024 BRYON HAMBY [facility] 5 11:12:05 Smoker 64766290 Active 2024 Micky Dickerson MD [address] [place] [address] 5, [facility] 5 11:34:06 Pulmonary emphysema 25558107 Active 2024 Micky Dickerson MD [address] [place] [address] 5, [facility] 5 11:33:54 Chronic low back pain 562956503 Active 2024 Micky Dickerson MD [address] [place] [address] 5, [facility] 5 11:49:22 Obesity 238051547 Active 2024 Micky Dickerson MD [address] [place] [address] 5, [facility] 5 11:50:21 Severe obesity 804673038071 04 Active 2024 Micky Dickerson MD [address] [place] [address] 5, [facility] 5 11:53:06 Notes:History of DVT Problem Notes None recorded. Procedures Surgical History Date Name Laterality Status Provider Name and Address Organization Details Recorded Time 12/18/19 24 Hysterectomy completed BRYONELVIS OG [facility]ogenes[facility]ogenes 01/15/2024 12:03:19 04/05/20 23 Colonoscopy completed BRYON [facility] LDiogenesL.CDiogenes 12/02/2023 15:50:42 [facility] 02/16/2023 12:16:18 [facility]2023 12:16:48 Gallbladder Surgery [facility]/16/2023 12:16:58 Imaging Results None recorded. Procedure Notes None recorded. Medical Equipment None Reported. Allergies Allergen ID Allergen Name Allergen Category Reaction Reaction Severity Criticality Documentation Date Start Date Code Code System Note Provider Name and Address Organization Details Recorded Time lisinopri l medicatio n cough edema mild moderate low 12/03/20232023 25108 [facility] 14:38:33 04503 losartan medicatio n hives respirato ry distress mild moderate low 12/03/20232023 09473 [facility] 14:38:47 Medications Name Sig Start Date Stop [...] release TID 02/16 completed 0; Recorded 01/24/20 11:32AM by Bryon Og RN, Office Visit; Not Available Not Available Not Available Lasix BID 02/16 completed DOC DM/MG; 11038; Recorded 11/05/19 5:30PM by Ariella Fleming (Authori zed through Eliazar Alvarado DO), Refill Request; Refill Quantity : 180; Tablet; Not Available Not Available Not Available metoprolo l succinate daily 02/16 completed DC/tcg; 02263; Recorded 06/19/20 10:54AM by Kajal Rice (Authori zed through [...] and Address Organization Details Last Updated DateTime 162.56 cm 45.4 kg/m2 845827. 49 g 95 % 76 /min 18 /min 98 [degF] 130/68 mm[Hg] THADDEUS GUO [facility] LDiogenesLKaren 14:50:50 Social History Question Answer Notes LastModified by Organizat ion Details LastModified Time Tobacco Smoking Status Current Every Day Smoker THADDEUS gerber [facility] LDiogenesLKaren 02/16/2023 12:15:44 Are You Blind Or Do [...] difficulty concentrating, remembering or making decisions? No Information no t available 12/10/2024 Family History [...] Vaccine Type Date Status Note Provider Nam e and Address Organization Details Recorded Time Influenza, split virus, trivalent, preservative 2 completed THADDEUS gerber [facility] 02/16/2023 12:10:59 COVID-19, mRNA, LNP-S, PF, 100 mcg/0.5mL dose or 50 mcg/0.25mL dose 1 completed Mary gerber [facility] 02/29/2024 14:39:25 COVID-19, mRNA, LNP-S, PF, 100 mcg/0.5mL dose or 50 mcg/0.25mL dose 0 completed Mary gerber [facility] 02/29/2024 14:39:25 Past Encounters Encounter ID Performer Location Encounter Start Date Encounter Closed Date Diagnosis/Indication Diagnosis SNOMED-CT Code Diagnosis ICD10 Code Diagnosis IMO Codes Diagnosis Note [id number] Micky Dickerson MD [facility] ([facility]) [address] [place] [phone] 04/08/2025 14:25:04 05/11/2025 07:36:13 Chronic low back pain 814405548 G89.29 M54.42 - Continuing therapy. - Encouraged reduction in smoking. - Therapy aimed at symptom relief. - Numbness addressed with possible nerve compressio n education. Dyspnea 333939551 R06.02 63268 Health Concerns Section Related Observation LastModified by Organization Detai ls LastModified Time None Recorded Concern Status LastModified by Organization Details LastModified Time None Recorded Payers Encounter Date Sequence Insurance Name Policy Number Policy Fisher Covered Member ID Fisher Member ID Guarantor Name 04/08/2025 1 [employer] [id number] Susanne Olivas [id number] Susanne Olivas Notes Date Note Type Note Provider Name and Address Organization Details Recorded Time 04/08/2025 text/html Pt states she is going through [...] to involve sciatic nerve. Micky Dickerson MD [address] [place] [address], [phone], [facility] - [facility], LZacarias 05/07/2025 21:03:12 OBGyn Episode No OBEpisode recorded.
--- OUTSIDE RECORDS SUMMARY | 2025-06-07 02:39 | XMS_ITS | Encounter Summary ---
Author Organization [facility] Address 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
--- OUTSIDE RECORDS SUMMARY | 2025-06-07 02:39 | XMS_ITS | Encounter Summary ---
Author Organization [facility] Address [address] [place] [address] Care Team Providers Care Customer Complaint Clerk Name Role Phone Ozzy Singh MD Primary Care Provider Unavail able Encounter Details Date Type Department Care Team (Latest Contact Info) Description 12/25/1998 Inpatient Historical HIS PATIENT IN A BED Florian Vernon MD [facility] [address] [address] Phlebitis and thrombophlebitis of lower extremities, unspecified (Primary Dx) Social History Tobacco Use Types Packs/Day Years Used Date Smoking Tobacco: Never Assessed Comments Unknown Sex and Gender Information Value Date Recorded Sex Assigned at Not on file 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
--- OUTSIDE RECORDS SUMMARY | 2025-06-07 02:39 | XMS_ITS | Encounter Summary ---
Author Organization [facility] Address 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
--- OUTSIDE RECORDS SUMMARY | 2025-06-07 02:39 | XMS_ITS | Clinical Summary ---
Author Organization [facility] Address [address] [place] [address] Care Team Providers Care Home Support Worker Name Role Phone Unavailable Primary Care Provider Unavailabl e Allergies No known active allergies Medications lisinopril-hydr oCHLOROthiazide (ZESTORETIC) 20-12.5 mg tablet Take 2 Tablet by mouth daily. Active escitalopram oxalate (LEXAPRO) 10 mg tablet Take 10 mg by mouth daily. Active furosemide (LASIX) 20 mg tablet Take 20 mg by mouth daily. Active potassium chloride (KLOR-CON) 10 mEq Extended Release tablet Take 10 mEq by mouth. Active traMADol (ULTRAM) 50 mg tablet Take 100 mg by mouth every 6 hours as needed for Pain. Active HYDROcodone-carlotta taminophen (NORCO) 5-325 mg tablet Take 1 Tablet by mouth every 6 hours as needed for Pain Do not drive or operate machinery, take with other pain medications, or mix with alcohol.. Max Daily Amount: 4 Tablet 5 Tablet 05/20/2016 Active Social History Tobacco Use Types Packs/Day Years Used Date Smoking Tobacco: Every Day Smokeless Tobacco: Never Alcohol Use Standard Drinks/Week Comments No 0 (1 standard drink = 0.6 oz pur e alcohol) Comments No Sex and Gender Information Value Date Recorded Sex Assigned at Not on file Legal Sex Female 9:04 AM SECURITY REPRESENTATIVE Gender Identity Not on file Sexual Orientation Not on file Last Filed Vital Signs Vital Sign Reading Time Taken Comments Blood Pressure 111/72 05/20/2016 9:23 AM SECURITY REPRESENTATIVE Pulse 89 05/20/2016 9:23 AM SECURITY REPRESENTATIVE Temperature 36.7 C (98 F) 05/20/2016 9:23 AM SECURITY REPRESENTATIVE Respiratory Rate 18 05/20/2016 9:23 AM SECURITY REPRESENTATIVE Oxygen Saturation 97% 05/20/2016 9:23 AM SECURITY REPRESENTATIVE Inhaled Oxygen Concentration - - Weight 108.4 kg (239 lb) 05/20/2016 9:23 AM SECURITY REPRESENTATIVE Height 160 cm (5' 3 ) 05/20/2016 9:23 AM SECURITY REPRESENTATIVE Body Mass Index 42.34 05/20/2016 9:23 AM SECURITY REPRESENTATIVE Plan of Treatment Health Maintenance Due Date [...] ) (1 - 1-dose 75+ series) 2037 Insurance GENERIC [place] [address]
--- NOTE | 2025-06-07 02:49 | XRR_ITS ---
PROCEDURE INFORMATION: Exam: XR Right Tibia and Fibula Exam date and time: 06/07/2025 2:49 AM Age: 64 years old Clinical indication: Injury or trauma; Blunt trauma; Right; Prior surgery; Surgery date: 6+ months; Surgery type: Tka; EMS arrival for ground level fall. C/O RT lower leg pain with deformity. ; Additional info: Fall R leg pain TECHNIQUE: Imaging protocol: Radiologic exam of the right tibia and fibula. Views: 2 views. COMPARISON: CR XR knees AP WB w RT lmt ORTH 02/16/2022 1:06 PM FINDINGS: Bones/joints: Displaced spiral fractures of the distal tibia and distal fibula diaphysis. Suspected intra-articular extension into the tibiotalar joint. Diffuse osseous demineralization. Soft tissues: Normal. XR/XR tibia fibula RT 2V [id number] IMPRESSION: 1. Displaced spiral fractures of the distal tibia and distal fibula diaphysis. 2. Suspected intra-articular extension of the tibia fracture into the tibiotalar joint.
--- NOTE | 2025-06-07 03:02 | ECG_ITS ---
[facility] Date: 2025-06-07 Pat Name: Susanne Olivas Department: Room: Gender: Female Stenographer [employer]: : 1960 Requested By: Jose Osman Order Number: [id number] Deshpande MD: Emory Balderrama M.D. Measurements Intervals [place] Rate: 71 P: 60 [place]: 193 QRS: 71 QRSD: 90 T: 66 QT: 413 QTc: 451 Interpretive Statements SINUS RHYTHM NORMAL ECG Compared to ECG 06/18/2015 12:07:45 Myocardial infarct finding no longer present Electronically Signed On 06-07-2025 17:02:37 [employer] HAZMAT DRIVER by Emory Balderrama M.D. [email or web address]
--- NOTE | 2025-06-07 03:08 | XRR_ITS ---
PROCEDURE INFORMATION: Exam: XR Chest Exam date and time: 06/07/2025 3:14 AM Age: 64 years old Clinical indication: Injury or trauma; Blunt trauma (contusions or hematomas); EMS arrival for fall with right lower leg fracture TECHNIQUE: Imaging protocol: Radiologic exam of the chest. Views: 1 view. COMPARISON: CT lung screening [id number] 12/22/2024 8:59 AM FINDINGS: Lungs: Unremarkable. No consolidation. Pleural spaces: Unremarkable. No pleural effusion. No pneumothorax. Heart/Mediastinum: Unremarkable. No cardiomegaly. Bones/joints: Unremarkable. XR/XR chest 1V portable [id number] IMPRESSION: No acute findings.
[2025-06-07 03:10] VITALS: RESP 17; O2SAT 97
[2025-06-07] MEDS: ondansetron 2 mg/ML SDV 2 mL 4 MG IVP (03:10)
[2025-06-07] MEDS: morphine 4 mg/mL SDV 1 mL IVP (03:10)
--- NOTE | 2025-06-07 03:18 | W.ED.FALL ---
HPI - Fall General: Chief Complaint: Fall Stated Complaint: FALL Time Seen by Provider: 06/07/25 02:39 History of Present Illness: Patient is a 64-year-old female who presents to the ED in the early childhood coordinator hours with right lower leg pain. She reports that approximately 3-4 hours prior to arrival, she was taking off her socks at the end of her bed when she tripped over some moving boxes (patient states she recently moved into a new house). She hit her leg against the bed frame, specifically a sleigh bed that comes in at the bottom. The pain is localized to an area just above the right ankle. Patient denies knee pain. After the fall, she reports having to crawl on her stomach backwards to reach another room to get help. She denies hitting her head during the incident. Of note, patient is on Eliquis (apixaban), which she acknowledges contributes to easy bruising. Related Data Home Medications ?Medication ?Instructions ?Recorded ?Confirmed furosemide 20 mg tablet (Lasix) 20 mg PO DAILY 09/04/19 05/18/25 potassium chloride 10 mEq 10 meq PO DAILY 09/04/19 05/18/25 capsule,extended release metoprolol succinate 100 mg 100 mg PO DAILY 12/01/20 05/18/25 tablet,extended release 24 hr montelukast 10 mg tablet 10 mg PO DAILY 01/04/22 05/18/25 escitalopram oxalate 10 mg tablet 10 mg PO DAILY 11/22/23 05/18/25 Previous Rx's ?Medication ?Instructions ?Recorded amlodipine 10 mg tablet 10 mg PO DAILY #90 tabs 11/23/23 hydralazine 25 mg tablet 25 mg PO BID #60 tabs 11/23/23 hydrochlorothiazide 12.5 mg tablet 25 mg (2 x 12.5 mg) PO DAILY #60 11/23/23 tabs apixaban 5 mg tablet (Eliquis) 5 mg PO Q12H #60 tabs 01/09/24 doxycycline hyclate 100 mg tablet 100 mg PO BID #20 tabs 05/18/25 tramadol 50 mg tablet 50 mg PO Q8H PRN pain #10 tabs 05/18/25 Allergies Allergy/AdvReac Type Severity Reaction Status Date / Time lisinopril Allergy ADR-Cough Verified 06/07/25 02:37 losartan Allergy ALGY-Rash Verified 06/07/25 02:37 [facility] ED PFSH: Medical History Cellulitis and abscess of buttock Hypertensive urgency Abdominal wall cellulitis Abnormal uterine bleeding Morbid obesity with BMI of 40.0-44.9, adult Dental abscess Shortness of breath Sleep apnea Hypertension H/O deep venous thrombosis Cellulitis Surgical History H/O total knee replacement Family History Father Colon cancer Mother Hypertension Uterine cancer Denies family history of Ovarian cancer Prostate cancer Diabetes Heart disease Hypercholesteremia Breast cancer Thyroid disease Stroke Social History Smoking and tobacco/nicotine status: current every day tobacco/nicotine user Physical Exam Const: GENERAL APPEARANCE: cooperative HENMT: COMMON NORMALS: normocephalic, atraumatic and Normal external nose present HEAD & SCALP: normocephalic and atraumatic FACE & SINUS: normal facial exam and face symmetric NOSE: Normal external nose present Eye: COMMON NORMALS: Equal, round and reactive pupils present and EOMs intact bilaterally PUPIL: Yes Equal, round and reactive pupils present Neck/C-Spine: GENERAL: Yes trachea midline Chest: CHEST: Yes Symmetrical chest wall rise Resp: COMMON NORMALS: normal respiratory effort, No retractions, No use of accessory muscles and clear to auscultation bilaterally AUSCULTATION: clear to auscultation bilaterally Cardio: COMMON NORMALS: regular rate and regular rhythm RATE: regular rate RHYTHM: regular rhythm GI: COMMON NORMALS: Normal to inspection, nondistended, normoactive bowel sounds present Extremity: NARRATIVE EXTREMITY EXAM: Exam right lower extremity reveals rotational deformity to the right lower leg. There is tenderness to palpation over the mid distal tibia and fibula. Pulses are intact to touch distally. Sensation is intact to touch. There is no knee tenderness. There is no knee deformity. No evidence for open fracture. Exam of the right upper extremity reveals ecchymosis of the right forearm. There is no bony tenderness. Neuro: CHRIS COMA SCALE: document GCS findings Chris coma scale eye opening: Spontaneous [place] coma scale verbal response: Orientated [place] coma scale motor response: Obey commands [place] coma scale total score: 15 SENSORY EXAM: Yes extremities (intact) Psych: COMMON NORMALS: speech normal SPEECH: Yes normal speech Course Vital Signs: Vital signs: Vital Signs Temperature 98.7 F 06/07/25 02:32 Pulse Rate 78 06/07/25 02:32 Respiratory Rate 17 06/07/25 03:10 Blood Pressure 107/56 06/07/25 02:32 Pulse Oximetry 97 06/07/25 03:10 MDM - Fall Medical Decision Making 64-year-old female with a fall. She sustained spiral fractures to her mid distal tibia and fibula. The tibia fracture may extend into her joint. They are mildly displaced. She did not hit her head. She has no head injury, no neck pain. She is on Eliquis. CBC is normal. Chest x-ray is nonacute. Spoke with podiatry and with orthopedics. Both states she will require nail, and we do not have the proper surgical equipment to fix this fracture. Spoke with [facility] ER. They are willing to take and transfer as a trauma. She will go by ambulance. She is placed in a long-leg posterior splint with stirrup. Lab Data 06/07/25 03:31 06/07/25 03:31 Radiology Impressions Tibia/Fibula X-Ray 06/07/25 02:49 IMPRESSION: 1. Displaced spiral fractures of the distal tibia and distal fibula diaphysis. 2. Suspected intra-articular extension of the tibia fracture into the tibiotalar joint. Chest X-Ray 06/07/25 03:08 IMPRESSION: No acute findings. Laboratory Results WBC 6.81 10^3/uL (3.29-11.43) 06/07/25 03:31 RBC 4.63 10^6/uL (3.85-5.65) 06/07/25 03:31 Hgb 16.20 g/dL (11.27-16.99) 06/07/25 03:31 Hct 47.0 % (36-47) 06/07/25 03:31 MCV 101.5 fl (85-98) H 06/07/25 03:31 MCH 35.0 pg (27-33) H 06/07/25 03:31 MCHC 34.5 g/dL (30-55) 06/07/25 03:31 RDW 12.1 % (12.1-15.1) 06/07/25 03:31 Plt Count 234 10^3/cmm (157-399) 06/07/25 03:31 MPV 10.1 fL (7.4-10.4) 06/07/25 03:31 Neut % (Auto) 76.2 % 06/07/25 03:31 Lymph % (Auto) 14.2 % 06/07/25 03:31 [place] % (Auto) 7.3 % 06/07/25 03:31 Eos % (Auto) 1.8 % 06/07/25 03:31 Baso % (Auto) 0.4 % 06/07/25 03:31 Neut # (Auto) 5.18 10^3/uL (1.8-7.7) 06/07/25 03:31 Lymph # (Auto) 1.0 10^3/uL (0.8-4.8) 06/07/25 03:31 [place] # (Auto) 0.5 10^3/uL (0.2-0.9) 06/07/25 03:31 Eos # (Auto) 0.1 10^3/uL (0.0-0.8) 06/07/25 03:31 Baso # (Auto) 0.0 10^3/uL (0.0-0.1) 06/07/25 03:31 Nucleated RBC % (auto) 0 % 06/07/25 03:31 Nucleated RBCs # 0.0 /100WBC 06/07/25 03:31 All radiology interpretation(s) finalized by discharge Discharge Plan Discharge Patient Disposition: Xfer Short-Term Hosp Clinical Impression: Closed fracture of distal end of fibula with tibia Condition: Stable Referrals: Lane Krause MD [Primary Care Provider, [facility]] Print Language: Portuguese Coding Level of Care Code ED Schedule Maker for Chelly Meyer
[2025-06-07] MEDS: HYDROmorphone 0.5 MG/0.5 ML INJ 1 MG IVP (03:36)
[2025-06-07 03:38] LABS: Hematocrit 47.0 % (36-47); Hemoglobin 16.20 g/dL (11.27-16.99); Mean Corpuscular HGB Conc 34.5 g/dL (30-55); Mean Corpuscular Hemoglobin 35.0 pg (27-33); Mean Corpuscular Volume 101.5 fl (85-98); Nucleated Red Blood Cells % 0 %; Platelet Count 234 10^3/cmm (157-399); Red Blood Count 4.63 10^6/uL (3.85-5.65); White Blood Count 6.81 10^3/uL (3.29-11.43)
[2025-06-07 04:13] LABS: INR 1.02 (0.8-1.2); Prothrombin Time 14.10 SECONDS (12.1-14.9)
[2025-06-07 04:14] LABS: Partial Thromboplastin Time 30.8 SECONDS (23.9-36.7)
[2025-06-07] MEDS: ketamine 100 mg/mL Inj 5 mL 20 MG IVP (04:14)
[2025-06-07 04:19] LABS: Alanine Aminotransferase 47 U/L (0-33); Albumin Level 4.5 g/dL (3.5-5.2); Alkaline Phosphatase 157 U/L (35-105); Blood Urea Nitrogen 27 mg/dL (8-23); Calcium 10.5 mg/dL (8.5-10.5); Carbon Dioxide 30 mmol/L (22-29); Chloride 96 mmol/L (98-107); Globulin 3.4 g/dL (1.3-4.6); Glucose 131 mg/dL (65-115); Osmolality Calculated 297 mOsm/kg (285-295); Sodium 140 mmol/L (136-145); Total Protein 7.9 g/dL (6.6-8.7)
[2025-06-07 04:24] LABS: Anion Gap 18.0 (5-19); Aspartate Amino Transferase 30 U/L (0-32); Potassium 4.0 mmol/L (3.5-5.1)
[2025-06-07 05:02] VITALS: BP 142/75; PULSE 83; O2SAT 98
== END 2025-06-07 05:44 | disposition short-term general hospital (02) ==
PROVIDERS: Emergency Provider Emergency Medicine; PCP Family Medicine
DX: S82.441A Displaced spiral fracture of shaft of right fibula, initial encounter for closed fracture (principal); S82.241A Displaced spiral fracture of shaft of right tibia, initial encounter for closed fracture; W01.0XXA Fall on same level from slipping, tripping and stumbling without subsequent striking against object, initial encounter
CPT/HCPCS: 36415; 71045; 73590; 80053; 82550; 85025; 85610; 85730; 93005; 96374; 96375; 99285; J1171; J2270; J2405; J3490